=== PATIENT | male | born 1945 | race Caucasian/White ===

== ENCOUNTER → 2016-07-16 | Outpatient (CLI) | payer MEDICARE, MEDICAID ==
--- NOTE | 2016-07-16 16:33 | RAD ---
EXAM DESCRIPTION: Thoracic Spine,AP Lateral CLINICAL HISTORY: RADICULOPATHY COMPARISON: None. TECHNIQUE: 3 views FINDINGS: Prior vertebral body augmentation is observed at T6 and T8. Diffuse osteopenia is observed. No acute compression injury is observed. IMPRESSION: The exam demonstrates evidence of prior vertebral body augmentation. No acute compression injury is detected. Electronically signed by: Jose Alejandro Duke MD 07/16/2016 4:32 PM CDT
--- NOTE | 2016-07-16 16:34 | RAD ---
EXAM DESCRIPTION: Chest,2 Views CLINICAL HISTORY: 71 years Male, COPD IMPRESSION: 2 views of the chest are submitted for interpretation. The lungs are clear. Nipple shadows project bilaterally. They are hyperinflated compatible with emphysema. Mediastinum is unremarkable. No pneumothorax pleural effusion. Multilevel vertebroplasty. Electronically signed by: Ryan Caceres MD 07/16/2016 4:33 PM CDT
--- NOTE | 2016-07-16 17:43 | US ---
Procedure: US RETROPERITONEUM Exam Date: 07/16/2016 Ordering Provider: Naomi Mora Clinical Indication: CYSTIC KIDNEY DISEASE Comparison: None Technique: Real-time ultrasonography was obtained over the kidneys and urinary bladder and customer service representative teacher images were recorded. Findings: The right kidney is normal in size and contour. The right kidney measures 10.0 x 4.6 x 5.1 cm in CC, transverse, and AP dimensions. There is normal renal cortical thickness and echogenicity. There are no masses or calculi. There is mild hydronephrosis. The left kidney is normal in size and contour. The left kidney measures 9.9 x 5.4 x 5.4 cm in CC, transverse, and AP dimensions. There is normal renal cortical thickness and echogenicity. There are no masses or calculi. There is mild hydronephrosis. There is a 1.4 cm cyst with thin septation in the upper pole. Impression: 1. Mild hydronephrosis bilaterally. 2. 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 Electronically signed by: Ethan Al MD 07/16/2016 5:41 PM CDT
== END | disposition home or self-care (01) ==
LOC: LAB.O 12:27
PROVIDERS: ATTEND Nurse Practitioner Family
DX: Q61.9 Cystic kidney disease, unspecified (principal); J44.9 Chronic obstructive pulmonary disease, unspecified; M54.14 Radiculopathy, thoracic region; E53.8 Deficiency of other specified B group vitamins; Z12.5 Encounter for screening for malignant neoplasm of prostate
CPT/HCPCS: 36415; 71020; 72070; 76775; 80053; 81001; 82607; 85025; G0103

== ENCOUNTER 2016-08-16 12:37 | Observation (INO) | payer MEDICARE, MEDICAID ==
[2016-08-16] MEDS ORDERED: LIDOCAINE VIS-MYLANTA 30 ML UD PO ONE (12:53)
--- NOTE | 2016-08-16 13:12 | RAD ---
EXAM DESCRIPTION: Chest,2 Views CLINICAL HISTORY: chest pain 18 hours COMPARISON: July 16, 2016 FINDINGS: Two-view chest x-ray shows cardiomediastinal silhouette and pulmonary vasculature to be within normal limits. The lungs are hyperinflated with chronic appearing increased interstitial markings. Costophrenic angles are sharp. Osseous structures are diffusely osteopenic. Vertebral augmentation of the midthoracic spine is seen with multilevel spondylitic changes noted. IMPRESSION: No radiographic evidence of acute cardiopulmonary disease in this emphysematous chest. Electronically signed by: Gio Cervantes MD 08/16/2016 1:10 PM CDT
[2016-08-16] MEDS ORDERED: NITROGLYCERIN 0.4 MG 25 EA TAB SL PRN ×2 (13:29→20:56)
--- NOTE | 2016-08-16 13:38 | ED.PDOC ---
History of Present Illness - General Chief Complaint: Chest Pain/DE Time Seen by Provider: 08/16/16 12:52 Source: patient Exam Limitations: no limitations - History of Present Illness Initial Comments: the patient is a 71-year-old male presenting to the emergency room secondary to chest pain that is parasternal on both sides starting last night when he was lying in bed. This is currently approximately 18 hours after the time of onset. He reports that the pain has been steady and progressive. He reports some mild shortness of breath with it. No abdominal pain. No belching. No nausea or vomiting. No heartburn issues. No syncope or near syncope. He reports that he has had 3 stress tests in the last 10 years, the last of which was approximately 3 years ago and was negative. he has not had any stents placed. 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 He reports that he apparently had chest pain around that time. No stents were placed. He has not been on any medications for his heart and then a blood pressure medicine. No palpitations. No diaphoresis.the pain is not made worse with exertion or movement. There is no positioning makes the pain better or worse. Palpation of the chest wall does give him some pain but it's difficult to say if it is entirely the same pain.. It does not worsen with taking a deep breath. the patient rates the pain at about a 7 out of 10. both nitroglycerin and a GI cocktail and failed to improve the pain. Timing/Duration: 24 hours Severity: moderate Improving Factors: nothing Worsening Factors: nothing Associated Symptoms: denies symptoms, chest pain Allergies/Adverse Reactions: Allergies NO KNOWN ALLERGY Allergy (Verified 08/16/16 12:53) Home Medications: Ambulatory Orders Cyanocobalamin [Vitamin B12] 1,000 mcg PO DAILY 08/16/16 Review of Systems - Review of Systems Constitutional: States: no symptoms reported EENTM: States: no symptoms reported Respiratory: States: no symptoms reported Cardiology: States: chest pain Gastrointestinal/Abdominal: States: no symptoms reported Genitourinary: States: no symptoms reported Musculoskeletal: States: no symptoms reported Skin: States: no symptoms reported Neurological: States: no symptoms reported Endocrine: States: no symptoms reported All other Systems: No Change from Baseline Past Medical History (General) - Patient Medical History Hx Stroke: No Hx of COPD: Yes Hx Congestive Heart Failure: No Hx Diabetes: No - Vaccination History Hx Influenza Vaccination: No Hx Pneumococcal Vaccination: No - Social History Hx Tobacco Use: Yes Family Medical History - Family History Father Family History: No Known Living Status: Physical Exam - Physical Exam General Appearance: Alert, Comfortable, No apparent distress Eye Exam: bilateral normal Ears, Nose, Throat: hearing grossly normal, normal ENT inspection, normal pharynx - poor dentition Neck: non-tender, full range of motion, supple Respiratory: lungs clear, normal breath sounds, no respiratory distress, no accessory muscle use, other - chest wall discomfort palpation as per history of present illness Cardiovascular/Chest: normal peripheral pulses, regular rate, rhythm, no edema Peripheral Pulses: radial,right: 2+, radial,left: 2+, dorsalis pedis,right: 2+, dorsalis pedis,left: 2+ Gastrointestinal/Abdominal: non tender, soft Rectal Exam: deferred Back Exam: normal inspection, no CVA tenderness, no vertebral tenderness Extremity: normal range of motion, non-tender, normal inspection, no pedal edema , no calf tenderness, normal capillary refill Neurologic: search engineer II-XII nml as tested, alert, normal mood/affect, oriented x 3 Skin Exam: normal color Comments: Vital Signs - 24 hr 08/16/16 12:38 Temperature 98.4 F Pulse Rate 59 L Pulse Rate [ 59 L Apical] Respiratory 22 Rate Blood Pressure 133/77 [Left Arm] O2 Sat by Pulse 96 Oximetry Progress - Progress Progress: 08/16/16 17:14 The patient is a 71-year-old male with a somewhat ill-defined cardiac history. He has had poor follow-up with his primary care doctor and thus poor management of his cardiac risk factors. He is presenting secondary to chest pain starting last night. Initial cardiac enzymes are negative. Initial EKG is reassuring. Chest pain felt to be relieved with nitroglycerin or a GI cocktail. He did receive good relief with just 2 mg of morphine. His chest pain has not recurred. The patient does have a history of hypercholesterolemia and hypertension. Due to these risk factors and his age she will be monitored overnight for a longer rule out protocol. He is receiving aspirin and Lovenox. Obviously if the patient's condition worsens then he will require further cardiac evaluation. At this point in time he is chest pain-free. The patient is unable to get to the emergency room on his own if his chest pain recurs tonight. The patient will be admitted for observation. - Results/Orders Results/Orders: EKG shows a right bundle branch block. Otherwise normal sinus rhythm. No other acute ST segment changes concerning for ischemia. Chest x-ray shows COPD. No acute changes otherwise. Laboratory Tests 08/16/16 08/16/16 08/16/16 13:00 13:00 13:00 WBC 5.1 RBC 4.72 Hgb 14.5 Hct 43.6 MCV 92.3 MCH 30.7 MCHC 33.2 RDW 13.4 Plt Count 135 MPV 9.7 Absolute Neuts (auto) 2.60 Absolute Lymphs (auto) 2.00 Absolute Monos (auto) 0.30 Absolute Eos (auto) 0.20 Absolute Basos (auto) 0.00 Neutrophils % 50.1 Lymphocytes % 38.6 Monocytes % 6.8 Eosinophils % 3.7 Basophils % 0.8 PT INR PTT (SP) D-Dimer, Quantitative Sodium 139 Potassium 3.9 Chloride 107 Carbon Dioxide 25 Anion Gap 10.9 L BUN 18 Creatinine 0.96 BUN/Creatinine Ratio 18.8 Random Glucose 95 Serum Osmolality 279.2 Calcium 8.7 Magnesium 2.0 Total Bilirubin 0.7 AST 15 ALT 12 Alkaline Phosphatase 41 L Creatine Kinase 22 L CK-MB (CK-2) 0.8 CK-MB (CK-2) % Not Reportable Troponin I < 0.02 B-Natriuretic Peptide 48.1 Serum Total Protein 7.0 Albumin 3.8 Globulin 3.2 Albumin/Globulin Ratio 1.2 Amylase 97 08/16/16 08/16/16 13:00 15:55 WBC RBC Hgb Hct MCV MCH MCHC RDW Plt Count MPV Absolute Neuts (auto) Absolute Lymphs (auto) Absolute Monos (auto) Absolute Eos (auto) Absolute Basos (auto) Neutrophils % Lymphocytes % Monocytes % Eosinophils % Basophils % PT 11.5 INR 1.020 PTT (SP) 29.9 D-Dimer, Quantitative 288 H* Sodium Potassium Chloride Carbon Dioxide Anion Gap BUN Creatinine BUN/Creatinine Ratio Random Glucose Serum Osmolality Calcium Magnesium Total Bilirubin AST ALT Alkaline Phosphatase Creatine Kinase 19 L CK-MB (CK-2) 0.7 CK-MB (CK-2) % Not Reportable Troponin I < 0.02 B-Natriuretic Peptide Serum Total Protein Albumin Globulin Albumin/Globulin Ratio Amylase Departure - Departure Clinical Impression: Chest pain Qualifiers: Chest pain type: unspecified Qualified Code(s): R07.9 - Chest pain, unspecified Disposition: Admit Patient Referrals: Naomi Mora FNP [Primary Care Provider] - 1-2 Weeks Home Medications: Ambulatory Orders Cyanocobalamin [Vitamin B12] 1,000 mcg PO DAILY 08/16/16 Decision To Admit - Decistion To Admit Decision to Admit Reason: Medical Nature Decision to Admit Date: 08/16/16 Decision to Admit Time: 17:17
[2016-08-16] MEDS ORDERED: MORPHINE SULFATE INJ 10 MG/ML VIAL IV ONE (14:05)
[2016-08-16] MEDS ORDERED: HYDROCOD/APAP 5/325 (ER DISP) #3 TAB PO ONE (17:11)
[2016-08-16] MEDS ORDERED: ASPIRIN TABLET 325 MG TAB PO ONE (17:11)
[2016-08-16] MEDS ORDERED: ENOXAPARIN SODIUM 60 MG/0.6 ML SYG SUBCU ONE (18:34)
[2016-08-16] MEDS ORDERED: ASPIRIN TABLET 325 MG TAB ONE (18:34)
[2016-08-16] MEDS ORDERED: HYDROcodone 5MG/APAP 325MG 1 EA TAB PO ONE (18:37)
--- NOTE | 2016-08-16 20:40 | HP ---
SUPERVISING PHYSICIAN: Jim Cotton MD CHIEF COMPLAINT: Chest pain. HISTORY OF PRESENT ILLNESS: This is a 71-year-old, male patient who has recently moved to [place] from [place], [place]. He said he had chest pain this morning with some shortness of breath with it. It actually started last night, but he stated it comes and goes, but it got so bad this morning that he came to the Emergency Room. He denies any other symptoms with it. In the Emergency Room, his initial cardiac enzymes were negative. His chest x-ray showed no radiographic evidence of acute cardiopulmonary disease with an emphysematous chest. CBC was basically within normal limits and his complete metabolic panel was basically within normal limits with the exception of his alkaline phosphatase which was slightly low at 41. I was called for admission to the hospital. PAST MEDICAL HISTORY: 1. Chronic obstructive pulmonary disease. PAST SURGICAL HISTORY: 1. Back surgery. CURRENT MEDICATIONS: He is on no outpatient medications. ALLERGIES: NO KNOWN ALLERGIES. SOCIAL HISTORY: He smokes 1-1/2 packs of cigarettes per day. He denies any ETOH or illicit drug use. REVIEW OF SYSTEMS: GENERAL: Denies fever, fatigue or weight changes. HEENT: Denies sinus symptoms, ear pain, vision changes or sore throat. RESPIRATORY: Complains of shortness of breath with the chest pain. Denies wheezing, coughing. CARDIAC: As per history of present illness. GASTROINTESTINAL: Denies nausea, vomiting, diarrhea, constipation or abdominal pain. SKIN: Denies lesions or rashes. NEUROLOGIC: Denies headache, dizziness, or seizures. PHYSICAL EXAMINATION: VITAL SIGNS: Afebrile. Heart rate 52 and has dropped as low as 45. Blood pressure 120/74. Respiratory rate 22. O2 saturation 92% on room air. GENERAL: This is a 71-year-old, male patient who is lying in his hospital bed. He is in no acute distress. HEENT: Normocephalic, atraumatic. Pupils are equal and reactive. Oropharynx is clear. NECK: Supple without mass. RESPIRATORY: Essentially clear to auscultation. CHEST: There is equal rise and fall of the chest with inspiration and expiration. CARDIAC: Bradycardic rate and regular rhythm. ABDOMEN: Nondistended, nontender. Bowel sounds are positive. EXTREMITIES: No cyanosis, clubbing or edema. NEUROLOGIC: Awake, alert and oriented times three. LABORATORY AND FILMS: Per history of present illness. ASSESSMENT: 1. Chest pain, rule out myocardial infarction. 2. Chronic obstructive pulmonary disease.. 3. Chronic tobacco abuse. PLAN: We will place the patient in observation. Continue cardiac enzymes. If they are negative and he has no further chest pain, he can be discharged tomorrow. He has seen Naomi Mora in the past at [facility] and he will need a close followup. The patient's heart rate does drop into the 40s, but he is asymptomatic with it and he states his normal heart rate is around 50 to 55 and he has never had any syncopal or dizzy spells with it, but it is recommended that he get a cardiac workup. I will order bronchial hygiene. We will monitor the patient closely and followup as needed. Dr. Cotton is the collaborating physician and available for consultation. #[id number] FITZ
[2016-08-16] MEDS: SODIUM CHLORIDE 0.9% (FLUSH) 10 ML SYG IV SCH (20:50)
[2016-08-16] MEDS ORDERED: SODIUM CHLORIDE 0.9% (FLUSH) 10 ML SYG IV PRN (20:56)
[2016-08-16] MEDS ORDERED: ACETAMINOPHEN 325 MG TAB PO PRN (20:56)
[2016-08-16] MEDS ORDERED: MORPHINE SULFATE INJ 10 MG/ML VIAL IV PRN (20:56)
[2016-08-16] MEDS ORDERED: IV SET AND CAP CHANGE INJ INJ SCH (21:00)
[2016-08-16 21:17] VITALS: BP 103/63; TEMP 98.1
[2016-08-17] MEDS ORDERED: PANTOPRAZOLE SODIUM TAB 40 MG PO SCH (06:30)
[2016-08-17] MEDS ORDERED: ASPIRIN TABLET 325 MG TAB PO SCH (09:00)
[2016-08-17] MEDS: SODIUM CHLORIDE 0.9% (FLUSH) 10 ML SYG IV SCH (09:16)
[2016-08-17 11:01] VITALS: O2SAT 94
--- NOTE | 2016-08-22 14:22 | DS ---
SUPERVISING PHYSICIAN: Jim Cotton MD DISCHARGE DIAGNOSIS: 1. Chest pain on admission, myocardial infarction ruled out due to negative cardiac enzymes and no EKG changes as well as clinically, the patient had no further chest pain during hospital stay. 2. Asymptomatic bradycardia. 3. Chronic obstructive pulmonary disease.. 4. Chronic tobacco abuse. HISTORY OF PRESENT ILLNESS: This is a 71-year-old, male patient who had recently moved to [place] from [place], [place]. He had chest pain earlier on the morning of admission with some associated shortness of breath. This had been going on previously, but the patient stated it would come and go, but it got so bad on the morning prior to coming to the Emergency Room that he felt it was necessary he be checked out. There were no other symptoms with it. In the Emergency Room, his initial cardiac enzymes were negative. His chest x-ray per radiology interpretation showed no radiographic evidence of acute cardiopulmonary disease with an emphysematous chest. CBC was basically within normal limits as well as his metabolic panel. The patient was placed in observation in the hospital. HOSPITAL COURSE: His subsequent cardiac enzymes were negative. He has no further complaints of chest pain. He walked the halls without any shortness of breath. He showed no EKG changes on the cardiac cath lab radiology technologist. The patient will be discharged home today. DISCHARGE PLAN: The patient will be discharged home in stable condition. He is to resume his previous activity. He is to resume his previous diet. He has seen Naomi Mora at [facility] on one occasion previously, but he will need a close followup. The patient does become quite bradycardic at times with his heart rate in the 40s, but he is asymptomatic with that rate and he states he has had the low heart rate for many years. He will need a cardiac workup at some point. I have encouraged him to stop smoking. He is to return to [facility] or the Emergency Room if he has any further chest pains. DISCHARGE MEDICATIONS: 1. Cyanocobalamin. 2. Nitroglycerin. #[id number] [facility]
== END 2016-08-17 11:45 | disposition home or self-care (01) ==
LOC: ER 12:37 → MS 20:39
PROVIDERS: ADMIT Nurse Practitioner Acute Care; ATTEND Nurse Practitioner Acute Care
DX: R07.89 Other chest pain (principal); J44.9 Chronic obstructive pulmonary disease, unspecified; F17.210 Nicotine dependence, cigarettes, uncomplicated; R06.02 Shortness of breath; E78.00 Pure hypercholesterolemia, unspecified; I10 Essential (primary) hypertension; I45.10 Unspecified right bundle-branch block
CPT/HCPCS: 36415 ×5; 71020; 80053 ×2; 80061; 82150; 82550 ×4; 82553 ×4; 83735; 83880; 84484 ×4; 85025 ×2; 85379; 85610; 85730; 93005 ×3; 94760 ×4; 96372; 96374; 99284; 99406; G0378; J1650; J2270

== ENCOUNTER 2016-09-11 11:19 | Emergency (ER) | payer MEDICARE, MEDICAID ==
[2016-09-11 11:33] VITALS: TEMP 98.2
--- NOTE | 2016-09-11 11:34 | ED.PDOC ---
History of Present Illness - General Chief Complaint: Chest Pain/[place] Stated Complaint: chest pressure Time Seen by Provider: 09/11/16 11:34 Source: patient, RN notes reviewed, Vital Signs reviewed Exam Limitations: no limitations - History of Present Illness Initial Comments: Denzel Bedolla 71 y/o male with history of copd stated that at home and resting 3 hours ago felt something heavy on his chest with sob no diaphoresis,no dizziness ,no nausea vomiting. He had chest pain symptoms 6 years ago while living in [place] and underwent cardiac cath was told had partial blockage in one of his coronaries but does not need intervention at that time.Continue to smoke 2ppd for 50 years but cut down to 1ppd the last 3 weeks. Timing/Duration: 1-3 hours, constant Location: central Activities at Onset: rest Prior Chest Pain/Cardiac Workup: cardiac cath - 6 years ago-see hpi Improving Factors: nothing Worsening Factors: nothing Nitro Today/Relief: 0.4 mg x 1, provided by ED Aspirin Treatment Today: 325 mg x 1, provided by ED Associated Symptoms: shortness of breath Allergies/Adverse Reactions: Allergies NO KNOWN ALLERGY Allergy (Verified 08/16/16 12:53) Home Medications: Ambulatory Orders NK [NK] 09/11/16 Review of Systems - Review of Systems Constitutional: States: no symptoms reported EENTM: States: no symptoms reported Respiratory: States: no symptoms reported Cardiology: States: see HPI Gastrointestinal/Abdominal: States: no symptoms reported Genitourinary: States: no symptoms reported Musculoskeletal: States: no symptoms reported Skin: States: no symptoms reported Neurological: States: no symptoms reported Endocrine: States: no symptoms reported Hematologic/Lymphatic: States: no symptoms reported Past Medical History (General) - Patient Medical History Hx Seizures: No Hx Stroke: No Hx Asthma: No Hx of COPD: Yes Hx Congestive Heart Failure: No Hx Pacemaker: No Hx Hypertension: Yes Hx Diabetes: No Hx MRSA: No Surgical History: other - lumbar spine,colonoscopy,cardiac cath - Vaccination History Hx Influenza Vaccination: No Hx Pneumococcal Vaccination: No - Social History Hx Tobacco Use: Yes Hx Alcohol Use: No Hx Substance Use: No Hx Physical Abuse: No Hx Emotional Abuse: No - Activities of Daily Living Patient Lives Alone: Yes Grooming Ability: Independent Eating (Feeding) Ability: Independent Toileting Ability: Independent Family Medical History - Family History Father Family History: No Known Living Status: Hx Cardiac Disease: Yes - parents -WV Physical Exam - Physical Exam General Appearance: Alert, No apparent distress Eyes, Ears, Nose, Throat Exam: PERRL/EOMI, normal ENT inspection, TMs normal, pharynx normal Neck: non-tender, full range of motion, supple Respiratory: chest non-tender, lungs clear, decreased breath sounds Cardiovascular/Chest: normal peripheral pulses, regular rate, rhythm, no edema, no murmur Peripheral Pulses: radial,right: 2+, radial,left: 2+ Gastrointestinal/Abdominal: normal bowel sounds, non tender, soft Extremity: normal range of motion, non-tender, normal inspection, no calf tenderness Neurologic: no motor/sensory deficits, alert, normal mood/affect, oriented x 3 Skin Exam: normal color, warm/dry Lymphatic: no adenopathy Progress - Results/Orders Results/Orders: Vital Signs - 8 hr 09/11/16 09/11/16 09/11/16 11:31 11:39 12:33 Temperature 98.2 F Pulse Rate [ 63 63 70 Right Brachial] Respiratory 16 16 Rate Blood Pressure 129/103 104/63 [Right Arm] O2 Sat by Pulse 96 95 Oximetry 09/11/16 11:45 EKG STAT Laboratory Results WBC 5.3 K/mm3 (4.8-10.8) 09/11/16 11:28 RBC 4.84 M/mm3 (4.70-6.10) 09/11/16 11:28 Hgb 15.0 gm/dL (14.0-18.0) 09/11/16 11:28 Hct 44.5 % (42.0-52.0) 09/11/16 11:28 MCV 92.0 fl (80.0-94.0) 09/11/16 11:28 MCH 31.1 pg (27.0-31.0) H 09/11/16 11:28 MCHC 33.8 g/dL (33.0-37.0) 09/11/16 11:28 RDW 13.8 % (11.5-14.5) 09/11/16 11:28 Plt Count 159 K/mm3 (130-400) 09/11/16 11:28 MPV 9.7 fl (7.40-10.4) 09/11/16 11:28 Absolute Neuts (auto) 2.70 K/uL (1.8-6.8) 09/11/16 11:28 Absolute Lymphs (auto) 2.00 K/uL (1.0-3.4) 09/11/16 11:28 Absolute Monos (auto) 0.40 K/uL (0.2-0.8) 09/11/16 11:28 Absolute Eos (auto) 0.20 K/uL (0.0-0.4) 09/11/16 11:28 Absolute Basos (auto) 0.00 K/uL (0.0-0.1) 09/11/16 11:28 Neutrophils % 50.5 % (42.0-78.0) 09/11/16 11:28 Lymphocytes % 38.7 % (20.0-50.0) 09/11/16 11:28 Monocytes % 7.1 % (2.0-9.0) 09/11/16 11:28 Eosinophils % 3.1 % (1.0-5.0) 09/11/16 11:28 Basophils % 0.6 % (0.0-2.0) 09/11/16 11:28 PT 11.4 SECONDS (9.4-12.5) 09/11/16 11:28 INR 1.010 09/11/16 11:28 PTT (SP) 32.9 SECONDS (25.1-36.5) 09/11/16 11:28 D-Dimer, Quantitative < 200 ng/mL (0-230) 09/11/16 11:28 Sodium 136 mmol/L (135-145) 09/11/16 11:28 Potassium 4.0 mmol/L (3.6-5.0) 09/11/16 11:28 Chloride 104 mmol/L (101-111) 09/11/16 11:28 Carbon Dioxide 29 mmol/L (21-31) 09/11/16 11:28 Anion Gap 7.0 (12-18) L 09/11/16 11:28 BUN 14 mg/dL (7-18) 09/11/16 11:28 Creatinine 0.96 mg/dL (0.6-1.3) 09/11/16 11:28 BUN/Creatinine Ratio 14.6 (10-20) 09/11/16 11:28 Random Glucose 99 mg/dL (70-105) 09/11/16 11:28 Serum Osmolality 272.5 mOsm/L (275-295) L 09/11/16 11:28 Calcium 8.8 mg/dL (8.4-10.2) 09/11/16 11:28 Magnesium 2.0 mg/dL (1.8-2.5) 09/11/16 11:28 Total Bilirubin 0.6 mg/dL (0.2-1.0) 09/11/16 11:28 Direct Bilirubin 0.1 mg/dL (0-0.2) 09/11/16 11:28 Indirect Bilirubin 0.5 mg/dL (0.2-0.8) 09/11/16 11:28 AST 16 IU/L (10-42) 09/11/16 11:28 ALT 12 IU/L (10-60) 09/11/16 11:28 Alkaline Phosphatase 44 IU/L (42-121) 09/11/16 11:28 Creatine Kinase 23 IU/L (38-174) L 09/11/16 11:28 CK-MB (CK-2) 1.0 ng/mL (0.0-4.4) 09/11/16 11:28 CK-MB (CK-2) % Not Reportable 09/11/16 11:28 Troponin I < 0.02 ng/mL (0.01-0.05) 09/11/16 11:28 B-Natriuretic Peptide 53.5 pg/ml (0-100) 09/11/16 11:28 Serum Total Protein 7.2 gm/dL (6.4-8.2) 09/11/16 11:28 Albumin 3.8 g/dl (3.2-5.5) 09/11/16 11:28 Discuss smoking cessation with patient stating he used to smoke 2ppd cut down to one ppd he will gradually quit saying cutting down slowly;recommended nicotine patch/gum but prefers to do it on his own. - EKG/XRAY/CT EKG: RBBB, no ST T wave changes Comments: heart rate-59,bifascicular block XRAY: chest - copd changes,osteopenia spine - Additional EKG/XRAY/Consults EKG #2: RBBB, no ST T wave changes Comments: heart rate-61 Departure - Departure Clinical Impression: Chest tightness or pressure COPD (chronic obstructive pulmonary disease) Qualifiers: COPD type: emphysema Emphysema type: unspecified Qualified Code(s): J43.9 - Emphysema, unspecified Nicotine dependence Qualifiers: Nicotine product type: cigarettes Substance use status: uncomplicated Qualified Code(s): F17.210 - Nicotine dependence, cigarettes, uncomplicated Time of Disposition: 15:19 - D/W Dr. Denise gr md [facility] Disposition: Transfer to Hospital Condition: Fair Departure Forms: Patient Portal Self Enrollment Referrals: Naomi Mora FNP [Primary Care Provider] - 1-2 Weeks Home Medications: Ambulatory Orders NK [NK] 09/11/16
[2016-09-11] MEDS ORDERED: ASPIRIN (CHEWABLE) 81 MG TAB PO ONE (11:38)
[2016-09-11] MEDS: NITROGLYCERIN 0.4 MG 25 EA TAB SL ONE ×3 (11:41→14:49)
--- NOTE | 2016-09-11 12:01 | RAD ---
Study: Single Frontal View of the Chest. Indication:pain Comparison: August 16, 2016. Impression: Heart size normal. Emphysema noted. Nipple shadow suspected at the lung bases. Otherwise, lungs clear. Prior two level thoracic vertebral body augmentation noted. Osteopenia. If this is a new finding, DEXA scan recommended as well as evaluation for possible osteoporosis treatment. Electronically signed by: Walt Mckenna MD 09/11/2016 12:01 PM CDT
[2016-09-11 15:28] VITALS: BP 114/68; O2SAT 95
== END 2016-09-11 15:28 | disposition short-term general hospital (02) ==
LOC: ER 11:19
DX: J43.9 Emphysema, unspecified (principal); R07.89 Other chest pain; F17.210 Nicotine dependence, cigarettes, uncomplicated; I10 Essential (primary) hypertension; Z82.49 Family history of ischemic heart disease and other diseases of the circulatory system; I45.10 Unspecified right bundle-branch block

== ENCOUNTER → 2016-09-21 | Outpatient (CLI) | payer MEDICARE, MEDICAID | END | disposition home or self-care (01) | LOC: LAB.O 09:50 | PROVIDERS: ATTEND Nurse Practitioner Family | DX: I20.9 Angina pectoris, unspecified (principal); R00.1 Bradycardia, unspecified; J44.9 Chronic obstructive pulmonary disease, unspecified; F17.290 Nicotine dependence, other tobacco product, uncomplicated ==

== ENCOUNTER 2016-12-05 20:19 | Emergency (ER) | payer MEDICARE, MEDICAID ==
[2016-12-05] MEDS ORDERED: IPRATROPIUM/ALBUTEROL 3 ML VIAL NEB ONE ×2 (20:32→21:43)
[2016-12-05 20:37] VITALS: TEMP 97.8
--- NOTE | 2016-12-05 20:39 | ED.PDOC ---
History of Present Illness - General Chief Complaint: Respiratory Problem Stated Complaint: shortness of breath Time Seen by Provider: 12/05/16 20:22 Source: patient Exam Limitations: no limitations - History of Present Illness Initial Comments: Patient presents with dyspnea for two hours. He has COPD and still smokes cigarettes. He has not had a COPD exacerbation in "a long time". He has not had a significant cough. No chest pain. No fever. No other complaints. Timing/Duration: 1-3 hours Severity: mild Improving Factors: nothing Worsening Factors: nothing Associated Symptoms: denies symptoms Allergies/Adverse Reactions: Allergies NO KNOWN ALLERGY Allergy (Verified 08/16/16 12:53) Home Medications: Ambulatory Orders NK [NK] 09/11/16 Review of Systems - Review of Systems Constitutional: States: no symptoms reported EENTM: States: no symptoms reported Respiratory: States: see HPI Cardiology: States: no symptoms reported Gastrointestinal/Abdominal: States: no symptoms reported Genitourinary: States: no symptoms reported Musculoskeletal: States: no symptoms reported Skin: States: no symptoms reported Neurological: States: no symptoms reported Endocrine: States: no symptoms reported Hematologic/Lymphatic: States: no symptoms reported Past Medical History (General) - Patient Medical History Hx Seizures: No Hx Stroke: No Hx Asthma: No Hx of COPD: Yes Hx Congestive Heart Failure: No Hx Pacemaker: No Hx Hypertension: Yes Hx Diabetes: No Hx MRSA: No - Vaccination History Hx Influenza Vaccination: No Hx Pneumococcal Vaccination: No - Social History Hx Tobacco Use: Yes Hx Alcohol Use: No Hx Substance Use: No Hx Physical Abuse: No Hx Emotional Abuse: No Family Medical History - Family History Father Family History: No Known Living Status: Hx Cardiac Disease: Yes - parents -[place] Physical Exam - Physical Exam General Appearance: Alert Ears, Nose, Throat: normal ENT inspection Neck: non-tender, full range of motion, supple Respiratory: other - distant breath sounds in all lung laguerre Cardiovascular/Chest: normal peripheral pulses, regular rate, rhythm Gastrointestinal/Abdominal: normal bowel sounds, non tender, soft Skin Exam: normal color Lymphatic: no adenopathy Progress - Progress Progress: 12/05/16 23:06 Patient responded well to a duonebs x one. He was also given solumedrol 125 mg IM x one. He said that his symptoms had cleared up. He was discharged in good condition. Departure - Departure Clinical Impression: COPD exacerbation Disposition: Discharge to Home or Self Care Condition: Good Diet: resume usual diet Activity: increase activity as tolerated Referrals: Naomi Mora FNP [Primary Care Provider] - 1-2 Weeks Home Medications: Ambulatory Orders NK [NK] 09/11/16
--- NOTE | 2016-12-05 20:57 | RAD ---
PROCEDURE: XR CHEST 1 VIEW HISTORY: dyspnea COMPARISON: 09/11/2016 TECHNIQUE: Single projection of the chest was done. FINDINGS: Note is again made of underlying changes of COPD . There are no discrete airspace infiltrates, pneumothoraces or pleural effusions. The pulmonary vascularity is normal. The cardiomediastinal silhouette is unremarkable for patient's age and sex. IMPRESSION: There is no acute pleural-parenchymal process seen in the imaged lung laguerre. Location of Interpretation: [facility] Electronically signed by: Benoit Rutledge MD 12/05/2016 8:56 PM CDT Workstation: [id number]
[2016-12-05] MEDS ORDERED: methylPREDNISolone SODIUM SUC 125 MG/2 ML VIAL IV ONE (21:17)
[2016-12-05 22:33] VITALS: O2SAT 94
[2016-12-05 23:14] VITALS: BP 119/76
== END 2016-12-05 23:13 | disposition home or self-care (01) ==
LOC: ER 20:19
DX: J44.1 Chronic obstructive pulmonary disease with (acute) exacerbation (principal); F17.210 Nicotine dependence, cigarettes, uncomplicated; I10 Essential (primary) hypertension; Z82.49 Family history of ischemic heart disease and other diseases of the circulatory system
CPT/HCPCS: 36415; 71010; 80053; 82550; 82553; 83880; 84484; 85025; 85610; 85730; 93005; 94640; J2930; J7620

== ENCOUNTER → 2016-12-13 | Outpatient (CLI) | payer MEDICARE, MEDICAID | LOC: RESP 13:26 | PROVIDERS: ATTEND Nuclear Medicine Nuclear Cardiology | DX: R00.2 Palpitations (principal) ==

== ENCOUNTER 2017-01-05 16:42 | Emergency (ER) | payer MEDICARE, MEDICAID ==
--- NOTE | 2017-01-05 17:00 | ED.PDOC ---
History of Present Illness - General Chief Complaint: Chest Pain/TN Stated Complaint: Chest pain Time Seen by Provider: 01/05/17 16:48 Source: patient, RN notes reviewed, Vital Signs reviewed, old records Exam Limitations: no limitations - History of Present Illness Initial Comments: Patient comes in with c/o chest pain across his upper chest for the past hour. The pain is sharp & 8/10. + SOB and diaphoresis. No nausea. 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 He also reports he popped a rib earlier and has pain in his L lower ribs with deep breathing. Pain does not radiate. Timing/Duration: 1 hour Severity/Quality: moderate, sharp Location: central Chest Pain Radiation: no radiation Activities at Onset: other - working on his backhoe Prior Chest Pain/Cardiac Workup: angina, cardiac cath - 6 years ago, stress test - ~5 months ago - normal per patient. Improving Factors: nothing Worsening Factors: nothing Nitro Today/Relief: 0.4 mg x 2, provided by ED, mild relief Aspirin Treatment Today: 325 mg x 1, provided at home Associated Symptoms: diaphoresis, shortness of breath Allergies/Adverse Reactions: Allergies NO KNOWN ALLERGY Allergy (Verified 01/05/17 16:53) Home Medications: Ambulatory Orders Aspirin [(None)] 325 mg PO DAILY 01/05/17 Cyanocobalamin [Vitamin B-12] 1,000 mcg PO DAILY 01/05/17 Review of Systems - Review of Systems Constitutional: States: diaphoresis. Denies: chills, fever, malaise EENTM: States: no symptoms reported Respiratory: States: short of breath, other - Hx of COPD, smoker X 50 years - has cut down to 1/2ppd. Denies: cough Cardiology: States: chest pain. Denies: palpitations, syncope Gastrointestinal/Abdominal: Denies: nausea Musculoskeletal: States: no symptoms reported Skin: States: no symptoms reported Neurological: States: no symptoms reported All other Systems: No Change from Baseline Past Medical History (General) - Patient Medical History Hx Seizures: No Hx Stroke: No Hx Asthma: No Hx of COPD: Yes Hx Congestive Heart Failure: No Hx Pacemaker: No Hx Hypertension: Yes Hx Diabetes: No Hx MRSA: No - Vaccination History Hx Influenza Vaccination: No Hx Pneumococcal Vaccination: No - Social History Hx Tobacco Use: Yes Hx Alcohol Use: No Hx Substance Use: No Hx Substance Use Treatment: No Hx Physical Abuse: No Hx Emotional Abuse: No Family Medical History - Family History Father Family History: No Known Living Status: Hx Cardiac Disease: Yes - parents -[place] Physical Exam - Physical Exam General Appearance: Alert, Comfortable, No apparent distress, Well Developed, Well Groomed, Well Hydrated, Well Nourished Neck: supple, normal inspection Respiratory: lungs clear, normal breath sounds, no respiratory distress, no accessory muscle use, other - mild tenderness across upper chest and tender L lower ribs Cardiovascular/Chest: normal peripheral pulses, regular rate, rhythm, no edema, no gallop, no JVD, no murmur Peripheral Pulses: radial,right: 2+, radial,left: 2+, dorsalis pedis,right: 1+, dorsalis pedis,left: 1+ Gastrointestinal/Abdominal: normal bowel sounds, non tender, soft, no organomegaly, no pulsatile mass Extremity: normal inspection, no pedal edema Neurologic: alert, normal mood/affect, oriented x 3 Skin Exam: normal color, warm/dry Comments: Vital Signs 01/05/17 16:54 Temperature 100.3 F H Pulse Rate [ 84 Apical] Respiratory 20 Rate Blood Pressure 129/57 [Left Arm] O2 Sat by Pulse 91 L Oximetry Progress - Progress Progress: 01/05/17 17:26 Chest pain decreased from 8/10 to 5/10 after 2 SLNTG but BP dropped into upper 70's - will give NS bolus and hold off on further NTG 01/05/17 17:59 BP improved after NS bolus Initial cardiac enzymes are normal. Will await 2nd set 4 hours after initial set. 01/05/17 19:03 Patient reports he is feeling better. Chest pain is 1/10. - Results/Orders Results/Orders: Laboratory Tests 01/05/17 01/05/17 01/05/17 17:05 17:05 17:05 WBC 8.8 RBC 4.42 L Hgb 13.7 L Hct 41.1 L MCV 93.1 MCH 30.9 MCHC 33.4 RDW 14.1 Plt Count 164 MPV 9.9 Absolute Neuts (auto) 6.60 Absolute Lymphs (auto) 1.50 Absolute Monos (auto) 0.60 Absolute Eos (auto) 0.10 Absolute Basos (auto) 0.00 Neutrophils % 74.8 Lymphocytes % 16.6 L Monocytes % 7.0 Eosinophils % 1.0 Basophils % 0.6 D-Dimer, Quantitative < 230 Sodium 134 L Potassium 3.4 L Chloride 102 Carbon Dioxide 23 Anion Gap 12.4 BUN 18 Creatinine 0.84 BUN/Creatinine Ratio 21.4 H Random Glucose 114 H Serum Osmolality 271.0 L Calcium 9.2 Total Bilirubin 0.8 AST 19 ALT 12 Alkaline Phosphatase 52 Creatine Kinase 16 L CK-MB (CK-2) 1.6 CK-MB (CK-2) % Not Reportable Troponin I < 0.02 Serum Total Protein 7.9 Albumin 3.9 Globulin 4.0 H Albumin/Globulin Ratio 1.0 L 01/05/17 20:07 WBC RBC Hgb Hct MCV MCH MCHC RDW Plt Count MPV Absolute Neuts (auto) Absolute Lymphs (auto) Absolute Monos (auto) Absolute Eos (auto) Absolute Basos (auto) Neutrophils % Lymphocytes % Monocytes % Eosinophils % Basophils % D-Dimer, Quantitative Sodium Potassium Chloride Carbon Dioxide Anion Gap BUN Creatinine BUN/Creatinine Ratio Random Glucose Serum Osmolality Calcium Total Bilirubin AST ALT Alkaline Phosphatase Creatine Kinase 20 L CK-MB (CK-2) 0.4 CK-MB (CK-2) % Not Reportable Troponin I < 0.02 Serum Total Protein Albumin Globulin Albumin/Globulin Ratio - EKG/XRAY/CT EKG: Sinus, RBBB, nonspecific ST T wave Chg, Unchanged from - 12/05/16 XRAY: chest - No acute process per Radiologist Departure - Departure Clinical Impression: Chest pain Qualifiers: Chest pain type: unspecified Qualified Code(s): R07.9 - Chest pain, unspecified Time of Disposition: 20:30 Disposition: Discharge to Home or Self Care Condition: Good Departure Forms: ED Discharge - Pt. Copy, Patient Portal Self Enrollment Instructions: DI for Chest Pain Diet: resume usual diet Activity: increase activity as tolerated Referrals: Naomi Mora NP [Primary Care Provider] - 1-2 Weeks RENÉ SAXENA [Referring] - 1-2 Weeks Home Medications: Ambulatory Orders Aspirin [(None)] 325 mg PO DAILY 01/05/17 Cyanocobalamin [Vitamin B-12] 1,000 mcg PO DAILY 01/05/17
[2017-01-05] MEDS: NITROGLYCERIN 0.4 MG 25 EA TAB SL ONE ×2 (17:09→17:15)
--- NOTE | 2017-01-05 17:16 | RAD ---
EXAM DESCRIPTION: Chest,1 View CLINICAL HISTORY: chest pain COMPARISON: December 05, 2016 FINDINGS: Cardiac silhouette is within normal limits. Skin folds project over the upper chest bilaterally. Patient is status post vertebroplasties. There is no focal parenchymal or pleural disease. There is no acute osseous process visualized. IMPRESSION: No evidence of acute cardiopulmonary disease. Electronically signed by: Jose Enrique Leonard MD 01/05/2017 5:15 PM CDT
[2017-01-05] MEDS ORDERED: SODIUM CHLORIDE 0.9% 1000ML 1,000 ML IVS ONE (17:26)
[2017-01-05 20:24] VITALS: O2SAT 96
[2017-01-05 20:38] VITALS: BP 139/80; TEMP 99.1
[2017-01-06] MEDS ORDERED: SODIUM CHLORIDE 0.9% 1000ML 1,000 ML ONE (09:21)
== END 2017-01-05 20:38 | disposition home or self-care (01) ==
LOC: ER 16:42
DX: R07.9 Chest pain, unspecified (principal); I45.10 Unspecified right bundle-branch block; J44.9 Chronic obstructive pulmonary disease, unspecified; I10 Essential (primary) hypertension; F17.200 Nicotine dependence, unspecified, uncomplicated

== ENCOUNTER → 2017-02-04 | Outpatient (CLI) | payer MEDICARE, MEDICAID | END | disposition home or self-care (01) | LOC: YCFC.O 10:32 | PROVIDERS: ATTEND Nurse Practitioner Family | DX: Q61.9 Cystic kidney disease, unspecified (principal) ==

== ENCOUNTER → 2017-02-05 | Outpatient (CLI) | payer MEDICARE, MEDICAID ==
--- NOTE | 2017-02-05 16:25 | US ---
EXAM DESCRIPTION: Renal: Ultrasound. CLINICAL HISTORY: CYSTIC KIDNEY DISEASE COMPARISON: Renal ultrasound 07/16/2016. TECHNIQUE: Transcutaneous scanning: Two-dimensional and Doppler modes. FINDINGS: Right kidney measures 10.3 x 5.7 x 4.4 cm; mid-renal cortical thickness normal . Minimally prominent renal pyramids consistent with age. No hydronephrosis No calcifications. Smooth contour of the kidney with no perinephric fluid. Normal vascularity. Proximal ureter not visualized. Left kidney measures number cm; mid-renal cortical thickness normal. Left renal cyst measures 1.2 x 1.2 x 1.9 cm. Nonvascular. No septation seen. Minimally prominent renal pyramids consistent with age. Mild hydronephrosis. No calcifications. Smooth contour of the kidney with no perinephric fluid. Normal vascularity.. Proximal ureter was visualized. Urinary bladder not visualized. Abdominal aorta diameter not measured IMPRESSION: Age-related changes in the right kidney. Stable since the prior study. Mild hydronephrosis in the left kidney stable since the prior study. No septations seen in the left renal cyst with a more simple appearance. No follow-up imaging recommended at this time. Electronically signed by: Enrrique Steiner MD 02/05/2017 4:24 PM CDT
== END | disposition home or self-care (01) ==
LOC: US 08:10
PROVIDERS: ATTEND Nurse Practitioner Family
DX: Q61.9 Cystic kidney disease, unspecified (principal)

== ENCOUNTER → 2017-02-13 | Outpatient (CLI) | payer MEDICARE, MEDICAID ==
--- NOTE | 2017-02-14 09:57 | CT ---
EXAM DESCRIPTION: Abdoment/Pelvis w/o Contrast CLINICAL HISTORY: RENAL MASS COMPARISON: Ultrasound February 05, 2017 TECHNIQUE: CT of the abdomen and Pelvis was performed without IV contrast. This exam was performed according to our departmental dose-optimization program, which includes automated exposure control, adjustment of the mA and/or kV according to patient size and/or use of iterative reconstruction technique. FINDINGS: Limited sensitivity for detection of a renal or other solid organ mass due to lack of IV contrast. With this in mind, there is an 8 mm hyperdense lesion superior pole right kidney, nonspecific. This was not seen on the patient's previous ultrasound. No additional right renal mass is seen. The right renal contour is smooth. Minimal prominence of the right renal collecting system without right-sided ureteral dilation or apparent right-sided urinary tract calculus. There is a round 1.7 cm low density mid left renal lesion which correlates with the cyst seen on recent ultrasound. No additional left renal mass is identified, and the left renal contour is smooth. There is mild left-sided hydronephrosis without left ureteral dilation or left-sided urinary tract calculus. No bladder calculus or bladder wall thickening. The prostate is slightly enlarged, measuring 5.2 cm transverse diameter. Moderate amount colonic stool and gas without colonic wall thickening or pericolonic inflammation. No dilated small bowel loops. The gallbladder is present without calcified gallstone. The liver, spleen, pancreas and marked. Emphysematous changes are noted in the lung bases. No adenopathy, ascites or pneumoperitoneum. No concerning bone lesion. IMPRESSION: 1.7 cm cystic lesion in the left kidney, suboptimally evaluated due to lack of IV contrast. This correlates with findings from recent ultrasound. No apparent solid left or right-sided renal mass. If clinical suspicion of renal mass persists, renal protocol CT with pre and multiphase postcontrast images is suggested. Mild bilateral hydronephrosis, slightly worse in the left side. No urinary tract calculus or ureteral dilation. Slightly enlarged prostate, correlate with serum PSA evaluation. Emphysema and other nonacute findings as detailed above. Electronically signed by: Tarun Bhakta MD 02/14/2017 9:56 AM CDT
== END | disposition home or self-care (01) ==
LOC: CT 10:53
PROVIDERS: ATTEND Internal Medicine Nephrology
DX: N18.4 Chronic kidney disease, stage 4 (severe) (principal)

== ENCOUNTER 2017-03-22 19:36 | Emergency (ER) | payer MEDICARE, MEDICAID ==
--- NOTE | 2017-03-22 20:45 | ED.PDOC ---
History of Present Illness - General Chief Complaint: General Stated Complaint: constipated Time Seen by Provider: 03/22/17 20:43 Source: patient Exam Limitations: no limitations - History of Present Illness Initial Comments: Denzel Bedolla 71 y/o male stated he had no bowel movement for the last 6 days and feeling more abdominal fullness;not takaing opiods;denies gi problems in the past Had colonoscopy 7 years ago was advised to come back in 10 years.No nausea or vomiting;no hematemesis Timing/Duration: other - see hpi Severity: moderate Improving Factors: nothing Worsening Factors: nothing Associated Symptoms: other - see hpi Allergies/Adverse Reactions: Allergies NO KNOWN ALLERGY Allergy (Verified 03/22/17 20:00) Home Medications: Ambulatory Orders Aspirin [(None)] 325 mg PO DAILY 01/05/17 Cyanocobalamin [Vitamin B-12] 1,000 mcg PO DAILY 01/05/17 Review of Systems - Review of Systems Constitutional: States: no symptoms reported EENTM: States: no symptoms reported Respiratory: States: no symptoms reported Cardiology: States: no symptoms reported Gastrointestinal/Abdominal: States: see HPI Genitourinary: States: no symptoms reported Past Medical History (General) - Patient Medical History Hx Seizures: No Hx Stroke: No Hx Dementia: No Hx Asthma: No Hx of COPD: Yes Hx Cardiac Disorders: Yes Hx Congestive Heart Failure: No Hx Pacemaker: No Hx Hypertension: No Hx Thyroid Disease: No Hx Diabetes: No Hx Gastroesophageal Reflux: No Hx Renal Disease: No Hx Cancer: No Hx of HIV: No Hx Hepatitis C: No Hx MRSA: No Surgical History: other - low back surgery;colonoscopy cardiac cath - Vaccination History Hx Tetanus, Diphtheria Vaccination: Yes Hx Influenza Vaccination: No Hx Pneumococcal Vaccination: No - Social History Hx Tobacco Use: Yes Hx Alcohol Use: No Hx Substance Use: No Hx Substance Use Treatment: No Hx Depression: No Hx Physical Abuse: No Hx Emotional Abuse: No - Triage Comment ED Triage Comment: Presents to ED--c/o constipation x 1 week now with no relief from OTC Ex-Lac states. Family Medical History - Family History Father Family History: No Known Living Status: Hx Cardiac Disease: Yes - parents -[place] Physical Exam - Physical Exam General Appearance: Alert, Anxious, No apparent distress Eye Exam: bilateral normal Ears, Nose, Throat: hearing grossly normal, normal ENT inspection Neck: non-tender, supple Respiratory: chest non-tender, lungs clear, normal breath sounds Cardiovascular/Chest: normal peripheral pulses, regular rate, rhythm, no murmur Peripheral Pulses: radial,right: 2+, radial,left: 2+ Gastrointestinal/Abdominal: normal bowel sounds, non tender, soft, no organomegaly Rectal Exam: normal rectal tone, heme negative stool, other - pasty stool rectal vault Back Exam: normal inspection Extremity: no pedal edema, no calf tenderness Neurologic: alert, normal mood/affect, oriented x 3 Progress - Progress Progress: 03/22/17 23:02 Last Vital Signs Temp 98.0 F 03/22/17 22:00 Pulse 71 03/22/17 22:00 Resp 20 03/22/17 22:00 BP 111/80 03/22/17 22:00 Pulse Ox 92 L 03/22/17 22:00 Had bowel movement after dulcolax and fleets enema - EKG/XRAY/CT XRAY: abdomen - non specific Departure - Departure Clinical Impression: Constipation by delayed colonic transit, Abdominal discomfort Time of Disposition: 23:03 Disposition: Discharge to Home or Self Care Condition: Good Departure Forms: ED Discharge - Pt. Copy, Patient Portal Self Enrollment Diet: other - increase oral intake fiber diet Referrals: Naomi Mora NP [Primary Care Provider] - 1-2 Weeks Home Medications: Ambulatory Orders Aspirin [(None)] 325 mg PO DAILY 01/05/17 Cyanocobalamin [Vitamin B-12] 1,000 mcg PO DAILY 01/05/17 Additional Instructions: May take metamucil one packet daily as needed -over the counter
--- NOTE | 2017-03-22 21:49 | RAD ---
EXAM DESCRIPTION: Abdomen Flat Upright CLINICAL HISTORY: pain COMPARISON: None FINDINGS: Supine and upright images of the abdomen were submitted. The lungs are hyperinflated. There are small bilateral pleural effusions. Moderate stool is in the colon. Loops of air-filled small bowel are mildly to moderately dilated. There is no free air in the abdomen. IMPRESSION: Constipation likely causes mild to moderate dilatation of loops of small bowel. If symptoms persist after evacuation, follow-up is recommended. Electronically signed by: Enrrique Haynes 03/22/2017 9:48 PM [facility]
--- NOTE | 2017-03-22 21:54 | RAD ---
EXAM DESCRIPTION: Chest,1 View CLINICAL HISTORY: pain COMPARISON: 01/05/2017 FINDINGS: There is mildly increased thickening of interstitial markings at the left lung base, worse since the prior exam. Hyperinflation persists. Cardiac silhouette is within normal limits. There is no other focal parenchymal or pleural disease. IMPRESSION: Left lung base interstitial thickening. Otherwise unremarkable. Electronically signed by: Enrrique Haynes 03/22/2017 9:53 PM [facility]
[2017-03-22] MEDS ORDERED: BISACODYL SUPPOSITORY 10 MG PR ONE (21:56)
[2017-03-22] MEDS ORDERED: MINERAL OIL 133 ML BTTL PR ONE (21:56)
[2017-03-22 22:09] VITALS: BP 111/80; TEMP 98; O2SAT 92
== END 2017-03-22 23:08 | disposition home or self-care (01) ==
LOC: ER 19:36
DX: K59.01 Slow transit constipation (principal); J44.9 Chronic obstructive pulmonary disease, unspecified; Z87.891 Personal history of nicotine dependence; Z79.82 Long term (current) use of aspirin

== ENCOUNTER 2017-05-20 12:30 | Emergency (ER) | payer MEDICARE, MEDICAID ==
[2017-05-20] MEDS ORDERED: KETOROLAC TROMETHAMINE INJ 30 MG/ML VIAL IV ONE (12:58)
--- NOTE | 2017-05-20 13:11 | ED.PDOC ---
History of Present Illness - General Chief Complaint: Respiratory Problem Stated Complaint: sob, cough Time Seen by Provider: 05/20/17 12:57 Additional Information: CHEST PAIN, ONSET LAST PM. IVIS L>R. SHARP, INCREASE WITH MOVEMENT AND POSITIONS. - History of Present Illness Timing/Duration: other - 1 DAY Severity: moderate Improving Factors: nothing Worsening Factors: nothing Associated Symptoms: denies symptoms Allergies/Adverse Reactions: Allergies NO KNOWN ALLERGY Allergy (Verified 05/20/17 12:41) Home Medications: Ambulatory Orders Aspirin [(None)] 325 mg PO DAILY 01/05/17 Cyanocobalamin [Vitamin B-12] 1,000 mcg PO DAILY 01/05/17 Indomethacin 50 mg PO TID PRN #14 cap 05/20/17 Sulfamethoxazole-Trimethoprim [Bactrim Ds 800-160 mg] 1 tab PO BID #20 tab 05/20 Review of Systems - Review of Systems Constitutional: Denies: chills, fever EENTM: States: no symptoms reported Respiratory: States: short of breath. Denies: cough, wheezing Cardiology: Denies: chest pain Gastrointestinal/Abdominal: States: no symptoms reported Genitourinary: States: no symptoms reported Musculoskeletal: States: no symptoms reported Skin: States: no symptoms reported Neurological: States: no symptoms reported Endocrine: States: no symptoms reported Past Medical History (General) - Patient Medical History Hx Seizures: No Hx Stroke: No Hx Dementia: No Hx Asthma: No Hx of COPD: Yes Hx Cardiac Disorders: Yes Hx Congestive Heart Failure: No Hx Pacemaker: No Hx Hypertension: No Hx Thyroid Disease: No Hx Diabetes: No Hx Gastroesophageal Reflux: No Hx Renal Disease: No Hx Cancer: No Hx of HIV: No Hx Hepatitis C: No Hx MRSA: No Surgical History: other - Vaccination History Hx Tetanus, Diphtheria Vaccination: Yes Hx Influenza Vaccination: No Hx Pneumococcal Vaccination: No - Social History Hx Tobacco Use: Yes Cigarettes Packs Per Day: 1 Hx Alcohol Use: No Hx Substance Use: No Hx Substance Use Treatment: No Hx Depression: No Hx Physical Abuse: No Hx Emotional Abuse: No Family Medical History - Family History Father Family History: No Known Living Status: Hx Cardiac Disease: Yes - parents -[place] Physical Exam - Physical Exam General Appearance: No apparent distress, Other - THIN Eye Exam: bilateral normal Ears, Nose, Throat: hearing grossly normal, normal ENT inspection Neck: non-tender, full range of motion Respiratory: lungs clear, no respiratory distress, other - DIMINISHED IVIS, SATS 96% ON RA Cardiovascular/Chest: regular rate, rhythm, no murmur Gastrointestinal/Abdominal: normal bowel sounds, non tender, soft Back Exam: normal inspection Extremity: normal range of motion, normal inspection Neurologic: alert, normal mood/affect Skin Exam: normal color, warm/dry Lymphatic: no adenopathy Progress - Progress Progress: 05/20/17 15:04 FEELS BETTER - EKG/XRAY/CT EKG: Best - 54, NL AXIS, NL INTERVALS, RBBB, , Sinus, nonspecific ST T wave Chg - NAIP, , Unchanged from - 01-05-17 XRAY: chest - COPD, KYPHOPLASTY, NOEMI. Departure - Departure Clinical Impression: Pleurisy, COPD exacerbation Time of Disposition: 15:06 Disposition: Discharge to Home or Self Care Condition: Good Departure Forms: ED Discharge - Pt. Copy, Patient Portal Self Enrollment Instructions: DI for Pleurisy Referrals: Naomi Mora NP [Primary Care Provider] - 1-2 Weeks Prescriptions: Indomethacin 50 mg PO TID PRN #14 cap PRN Reason: Pain Sulfamethoxazole-Trimethoprim [Bactrim Ds 800-160 mg] 1 tab PO BID #20 tab Home Medications: Ambulatory Orders Aspirin [(None)] 325 mg PO DAILY 01/05/17 Cyanocobalamin [Vitamin B-12] 1,000 mcg PO DAILY 01/05/17 Indomethacin 50 mg PO TID PRN #14 cap 05/20/17 Sulfamethoxazole-Trimethoprim [Bactrim Ds 800-160 mg] 1 tab PO BID #20 tab 05/20
--- NOTE | 2017-05-20 13:28 | RAD ---
EXAM DESCRIPTION: Chest,2 Views CLINICAL HISTORY: CP COMPARISON: March 22, 2017 FINDINGS: The cardiomediastinal silhouette is unremarkable. There is no airspace consolidation or pleural effusion. The lungs are hyperinflated. There is been previous vertebroplasty at several levels in the midthoracic spine. There is no pneumothorax or acute fracture. 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 Electronically signed by: Tarun Bhakta MD 05/20/2017 1:27 PM [facility]
[2017-05-20 15:40] VITALS: BP 111/77; TEMP 98.5; O2SAT 94
== END 2017-05-20 15:35 | disposition home or self-care (01) ==
LOC: ER 12:30
DX: J44.1 Chronic obstructive pulmonary disease with (acute) exacerbation (principal); R09.1 Pleurisy; F17.210 Nicotine dependence, cigarettes, uncomplicated
CPT/HCPCS: 36415; 71046; 80053; 85025; 93005; J1885

== ENCOUNTER 2017-05-24 09:54 | Emergency (ER) | payer MEDICARE, MEDICAID ==
[2017-05-24] MEDS ORDERED: IPRATROPIUM/ALBUTEROL 3 ML VIAL NEB ONE (10:09)
[2017-05-24] MEDS ORDERED: SODIUM CHLORIDE 0.9% 1000ML 1,000 ML IVS ONE (10:10)
[2017-05-24] MEDS ORDERED: ONDANSETRON INJ 4 MG/2 ML VIAL IV ONE (10:10)
[2017-05-24] MEDS ORDERED: PANTOPRAZOLE SODIUM IV 40 MG VIAL IV ONE (10:10)
--- NOTE | 2017-05-24 10:13 | ED.PDOC ---
History of Present Illness - General Stated Complaint: weakness, SOB Time Seen by Provider: 05/24/17 10:02 Source: patient, family Exam Limitations: no limitations - History of Present Illness Timing/Duration: 1 week Severity: severe Improving Factors: nothing Worsening Factors: movement Associated Symptoms: chest pain, fever/chills, shortness of breath, weakness - falling at home Allergies/Adverse Reactions: Allergies NO KNOWN ALLERGY Allergy (Verified 05/24/17 10:19) Home Medications: Ambulatory Orders Aspirin [(None)] 325 mg PO DAILY 01/05/17 Cyanocobalamin [Vitamin B-12] 1,000 mcg PO DAILY 01/05/17 Indomethacin 50 mg PO TID PRN #14 cap 05/20/17 Sulfamethoxazole-Trimethoprim [Bactrim Ds 800-160 mg] 1 tab PO BID #20 tab 05/20 Hyoscyamine Sulfate [Anaspaz] 0 mg PO Q4HR PRN #20 tab 05/24/17 Ondansetron Tab [Zofran Tab] 4 mg PO Q4HR PRN #15 tab 05/24/17 Pantoprazole Sodium [Protonix] 20 mg PO QDAC #30 tab 05/24/17 Review of Systems - Review of Systems Constitutional: States: malaise, weakness EENTM: Denies: nose congestion, throat pain Respiratory: States: short of breath. Denies: cough, orthopnea Cardiology: States: chest pain. Denies: edema, syncope Gastrointestinal/Abdominal: States: abdominal pain, other - anorexia. Denies: nausea, vomiting Genitourinary: States: no symptoms reported Musculoskeletal: Denies: joint pain, muscle pain Skin: States: no symptoms reported. Denies: rash Neurological: States: weakness. Denies: headache, numbness Endocrine: States: no symptoms reported Hematologic/Lymphatic: States: no symptoms reported Past Medical History (General) - Patient Medical History Hx Seizures: No Hx Stroke: No Hx Dementia: No Hx Asthma: No Hx of COPD: Yes Hx Cardiac Disorders: Yes Hx Congestive Heart Failure: No Hx Pacemaker: No Hx Hypertension: No Hx Thyroid Disease: No Hx Diabetes: No Hx Gastroesophageal Reflux: No Hx Renal Disease: No Hx Cancer: No Hx of HIV: No Hx Hepatitis C: No Hx MRSA: No - Vaccination History Hx Tetanus, Diphtheria Vaccination: Yes Hx Influenza Vaccination: No Hx Pneumococcal Vaccination: No - Social History Hx Tobacco Use: Yes Hx Alcohol Use: No Hx Substance Use: No Hx Substance Use Treatment: No Hx Depression: No Hx Physical Abuse: No Hx Emotional Abuse: No Family Medical History - Family History Father Family History: No Known Living Status: Hx Cardiac Disease: Yes - parents -MS Physical Exam - Physical Exam General Appearance: Alert, Emaciated, Lethargic Eye Exam: bilateral normal Ears, Nose, Throat: hearing grossly normal, other - dry oral mucosa Neck: non-tender, supple Respiratory: chest non-tender, lungs clear, no respiratory distress Cardiovascular/Chest: normal peripheral pulses, regular rate, rhythm, no edema Gastrointestinal/Abdominal: normal bowel sounds, soft, tenderness - in epigastrium Extremity: normal range of motion, normal inspection Neurologic: alert, normal mood/affect, oriented x 3 Skin Exam: normal color, warm/dry Lymphatic: no adenopathy Progress - EKG/XRAY/CT EKG: Sinus - Normal sinus rhythm, RBBB Comments: rate 69, CT 140, QRS 128, QTc 443 Departure - Departure Clinical Impression: Dehydration, mild, Influenza Gastritis Qualifiers: Gastritis type: unspecified gastritis Chronicity: acute Gastritis bleeding: without bleeding Qualified Code(s): K29.00 - Acute gastritis without bleeding COPD (chronic obstructive pulmonary disease) Qualifiers: COPD type: unspecified COPD Qualified Code(s): J44.9 - Chronic obstructive pulmonary disease, unspecified Disposition: Discharge to Home or Self Care Referrals: Naomi Mora DAM OPERATOR [Primary Care Provider] - 1-2 Weeks Prescriptions: Hyoscyamine Sulfate [Anaspaz] 0 mg PO Q4HR PRN #20 tab PRN Reason: Abdominal Cramping Ondansetron Tab [Zofran Tab] 4 mg PO Q4HR PRN #15 tab PRN Reason: Nausea/Vomiting Pantoprazole Sodium [Protonix] 20 mg PO QDAC #30 tab Home Medications: Ambulatory Orders Aspirin [(None)] 325 mg PO DAILY 01/05/17 Cyanocobalamin [Vitamin B-12] 1,000 mcg PO DAILY 01/05/17 Indomethacin 50 mg PO TID PRN #14 cap 05/20/17 Sulfamethoxazole-Trimethoprim [Bactrim Ds 800-160 mg] 1 tab PO BID #20 tab 05/20 Hyoscyamine Sulfate [Anaspaz] 0 mg PO Q4HR PRN #20 tab 05/24/17 Ondansetron Tab [Zofran Tab] 4 mg PO Q4HR PRN #15 tab 05/24/17 Pantoprazole Sodium [Protonix] 20 mg PO QDAC #30 tab 05/24/17
[2017-05-24 10:19] VITALS: TEMP 100.4
--- NOTE | 2017-05-24 10:55 | RAD ---
EXAM DESCRIPTION: Chest,1 View CLINICAL HISTORY: sob COMPARISON: May 20, 2017 IMPRESSION: Single AP portable upright view of the chest shows cardiac silhouette and pulmonary vasculature to be within normal limits. Lungs are mildly hyperinflated without acute appearing infiltrate or consolidation. Vertebral augmentation in the mid thoracic spine is again seen unchanged from previous. No obvious pleural effusion or pneumothorax is seen. Electronically signed by: Gio Cervantes MD 05/24/2017 10:54 AM SOFTWARE CONFIGURATION SPECIALIST
[2017-05-24] MEDS ORDERED: ALUM & MAG HYDROX-SIMETHICONE 30 ML, LIDOCAINE VISCOUS 2% 15 ML PO ONE ×2 (11:35)
[2017-05-24] MEDS ORDERED: ALUM & MAG HYDROX-SIMETHICONE 30 ML UD ONE (11:44)
[2017-05-24] MEDS ORDERED: LIDOCAINE HCL 2% (MOUTH-THROAT) 15 ML UD ONE (11:44)
[2017-05-24 12:47] VITALS: BP 121/74; O2SAT 91
== END 2017-05-24 12:47 | disposition home or self-care (01) ==
LOC: ER 09:54
DX: J11.1 Influenza due to unidentified influenza virus with other respiratory manifestations (principal); E86.0 Dehydration; K29.00 Acute gastritis without bleeding; J44.9 Chronic obstructive pulmonary disease, unspecified; I45.10 Unspecified right bundle-branch block
CPT/HCPCS: 71045; 80053; 84484; 85025; 87502; 93005; 94640; J2405; J7030; J7620

== ENCOUNTER 2018-02-16 16:23 | Emergency (ER) | payer MEDICARE, MEDICAID ==
--- NOTE | 2018-02-16 16:32 | ED.PDOC ---
History of Present Illness - General Chief Complaint: Chest Pain/MD Stated Complaint: Chest pain Time Seen by Provider: 02/16/18 16:32 Exam Limitations: no limitations - History of Present Illness Initial Comments: Denzel Bedolla 72 y/o male stated had felt someone sitting on his chest since kalia.13 Feb 2018 which had been constant since it started .Denies N/V SOB diaphoresis ,dizziness,.Stated had cardiac cath 2007.Had subsided on arrival at ER stating almost gone-his symptoms. Timing/Duration: other - see hpi Location: central Activities at Onset: none Prior Chest Pain/Cardiac Workup: cardiac cath - 2007 Improving Factors: nothing Worsening Factors: nothing Nitro Today/Relief: no nitro taken today Aspirin Treatment Today: 81 mg x 4 Associated Symptoms: cough - chronic -copd Allergies/Adverse Reactions: Allergies NO KNOWN ALLERGY Allergy (Verified 05/24/17 10:19) Review of Systems - Review of Systems Constitutional: States: no symptoms reported EENTM: States: no symptoms reported Respiratory: States: no symptoms reported Cardiology: States: see HPI Gastrointestinal/Abdominal: States: no symptoms reported Genitourinary: States: no symptoms reported Musculoskeletal: States: no symptoms reported Skin: States: no symptoms reported Neurological: States: no symptoms reported Past Medical History (General) - Patient Medical History Hx Seizures: No Hx Stroke: No Hx Dementia: No Hx Asthma: No Hx of COPD: Yes Hx Cardiac Disorders: Yes Hx Congestive Heart Failure: No Hx Pacemaker: No Hx Hypertension: No Hx Thyroid Disease: No Hx Diabetes: No Hx Gastroesophageal Reflux: No Hx Renal Disease: No Hx Cancer: No Hx of HIV: No Hx Hepatitis C: No Hx MRSA: No Surgical History: other - lumbar,cardiac cath,colonoscopy - Vaccination History Hx Tetanus, Diphtheria Vaccination: Yes Hx Influenza Vaccination: No Hx Pneumococcal Vaccination: No - Social History Hx Tobacco Use: Yes Hx Alcohol Use: No Hx Substance Use: No Hx Substance Use Treatment: No Hx Depression: No Hx Physical Abuse: No Hx Emotional Abuse: No - Activities of Daily Living Patient Lives Alone: Yes Grooming Ability: Independent Eating (Feeding) Ability: Independent Toileting Ability: Independent Family Medical History - Family History Father Family History: No Known Living Status: Hx Cardiac Disease: Yes - parents -MD Physical Exam - Physical Exam General Appearance: Alert, Comfortable, No apparent distress Eyes, Ears, Nose, Throat Exam: normal ENT inspection, other - edentulous Neck: non-tender, full range of motion, supple Respiratory: chest non-tender, lungs clear, normal breath sounds, no respiratory distress Cardiovascular/Chest: normal peripheral pulses, regular rate, rhythm, no murmur Peripheral Pulses: radial,right: 2+, radial,left: 2+ Gastrointestinal/Abdominal: non tender, soft, no organomegaly Extremity: non-tender, normal inspection, no pedal edema, no calf tenderness Neurologic: alert, oriented x 3 Skin Exam: normal color, warm/dry Progress - Progress Progress: 02/16/18 18:29 Vital Signs - 8 hr 02/16/18 02/16/18 17:05 18:00 Pulse Rate [ 65 54 L Apical] Respiratory 18 19 Rate Blood Pressure 106/75 124/77 [Left Arm] O2 Sat by Pulse 95 94 L Oximetry 02/16/18 19:59 Discuss test results with patient no myocardial injury stated feeling great recommended hospital obs but declined stated has appointment with his a r specialist on Feb.Stated was hospitalized here before for same symptoms they could not find cause of his symptoms and was sent home. 02/16/18 20:04 - Results/Orders Results/Orders: 02/16/18 16:30 Telemetry ONCE EKG STAT 02/16/18 16:31 Pulse Oximetry Assessment DAILY 02/16/18 16:33 IV Care:Saline Lock per Protoc QSHIFT 02/17/18 09:00 Pulse Ox Daily Laboratory Results - last 24 hr 02/16/18 02/16/18 16:43 16:43 WBC 5.4 RBC 4.62 L Hgb 14.5 Hct 42.6 MCV 92.3 MCH 31.3 H MCHC 33.9 RDW 13.3 Plt Count 173 MPV 9.1 Absolute Neuts (auto) 3.00 Absolute Lymphs (auto) 1.70 Absolute Monos (auto) 0.50 Absolute Eos (auto) 0.10 Absolute Basos (auto) 0.00 Neutrophils % 55.4 Lymphocytes % 32.3 Monocytes % 10.1 H Eosinophils % 1.8 Basophils % 0.4 PT 9.4 INR 0.94 PTT (SP) 23.5 Sodium 135 Potassium 3.6 Chloride 101 Carbon Dioxide 27 Anion Gap 10.6 L BUN 15 Creatinine 0.87 BUN/Creatinine Ratio 17.2 Random Glucose 100 Serum Osmolality 271.0 L Calcium 8.8 Magnesium 1.8 Total Bilirubin 0.5 Direct Bilirubin 0.1 Indirect Bilirubin 0.4 AST 28 ALT 19 Alkaline Phosphatase 48 Creatine Kinase 29 L CK-MB (CK-2) 1.4 CK-MB (CK-2) % 4.83 H Troponin I < 0.02 B-Natriuretic Peptide 26.1 Serum Total Protein 7.5 Albumin 3.8 - EKG/XRAY/CT EKG: Sinus, RBBB Comments: hr-62 XRAY: chest - copd changes Departure - Departure Clinical Impression: Chest pain Qualifiers: Chest pain type: unspecified Qualified Code(s): R07.9 - Chest pain, unspecified Time of Disposition: 20:02 Disposition: Discharge to Home or Self Care Departure Forms: ED Discharge - Pt. Copy, Patient Portal Self Enrollment Instructions: DI for Chest Pain Referrals: Naomi Mora, CUFFING MACHINE OPERATOR [Primary Care Provider] - 1-2 Weeks Additional Instructions: Continue with all home medication including Baby aspirin-81 mg daily;Return to ER as needed;Keep appointment with Clinical Applications Specialist on
--- NOTE | 2018-02-16 16:56 | RAD ---
PROCEDURE: XR CHEST 1 VIEW HISTORY: chest pain COMPARISON: None TECHNIQUE: Single projection of the chest was done. FINDINGS: There are underlying changes of COPD . There are no discrete airspace infiltrates, pneumothoraces or pleural effusions. The pulmonary vascularity is normal. The cardiomediastinal silhouette is unremarkable for patient's age and sex. IMPRESSION: There is no acute pleural-parenchymal process seen in the imaged lung laguerre. Location of Interpretation: Teleradiology Electronically signed by: Benoit Rutledge MD 02/16/2018 4:54 PM CDT Workstation: [id number]
[2018-02-16] MEDS: ASPIRIN (CHEWABLE) 81 MG TAB PO ONE (18:26)
[2018-02-16 20:22] VITALS: BP 123/81; TEMP 98.1; O2SAT 97
== END 2018-02-16 20:22 | disposition home or self-care (01) ==
LOC: ER 16:23
DX: R07.9 Chest pain, unspecified (principal); I45.10 Unspecified right bundle-branch block; J44.9 Chronic obstructive pulmonary disease, unspecified; Z87.891 Personal history of nicotine dependence

== ENCOUNTER 2018-04-19 09:04 | Emergency (ER) | payer MEDICARE, MEDICAID ==
[2018-04-19 09:31] VITALS: TEMP 98.7
[2018-04-19] MEDS ORDERED: MORPHINE SULFATE INJ 10 MG/ML VIAL IV ONE (09:40)
--- NOTE | 2018-04-19 09:43 | ED.PDOC ---
History of Present Illness - General Chief Complaint: Abdominal Pain Stated Complaint: right lower abdominal pain Time Seen by Provider: 04/19/18 09:37 Source: patient Exam Limitations: no limitations - History of Present Illness Initial Comments: Patient presents with RLQ pain for five hours. Constant, aching, non-radiating, worse with movement, better with rest. No diarrhea. No N/V. Has not eaten, yet, today. No other associated symptoms. No previous surgeries. No other complaints. Timing/Duration: 4-6 hours Severity: moderate Worsening Factors: rest Associated Symptoms: other - movement Allergies/Adverse Reactions: Allergies NO KNOWN ALLERGY Allergy (Verified 05/24/17 10:19) Home Medications: Ambulatory Orders Ketorolac Tromethamine [Toradol Tabs] 10 mg PO Q6HRS PRN #12 tab 04/19/18 Tamsulosin HCl [Flomax] 0.4 mg PO DAILY #6 cap 04/19/18 Past Medical History (General) - Patient Medical History Hx Seizures: No Hx Stroke: No Hx Dementia: No Hx Asthma: No Hx of COPD: Yes Hx Cardiac Disorders: Yes Hx Congestive Heart Failure: No Hx Pacemaker: No Hx Hypertension: No Hx Thyroid Disease: No Hx Diabetes: No Hx Gastroesophageal Reflux: No Hx Renal Disease: No Hx Cancer: No Hx of HIV: No Hx Hepatitis C: No Hx MRSA: No Surgical History: other - Vaccination History Hx Tetanus, Diphtheria Vaccination: Yes Hx Influenza Vaccination: No Hx Pneumococcal Vaccination: No - Social History Hx Tobacco Use: Yes Hx Alcohol Use: No Hx Substance Use: No Hx Substance Use Treatment: No Hx Depression: No Hx Physical Abuse: No Hx Emotional Abuse: No Family Medical History - Family History Father Family History: No Known Living Status: Hx Cardiac Disease: Yes - parents -IA Physical Exam - Physical Exam General Appearance: Alert Eye Exam: bilateral normal Ears, Nose, Throat: normal ENT inspection Neck: non-tender, full range of motion, supple Respiratory: lungs clear Cardiovascular/Chest: normal peripheral pulses, regular rate, rhythm Gastrointestinal/Abdominal: normal bowel sounds, other - TTP over RLQ. There is guarding. No rebound tenderness. Negative Rovsing's sign. Back Exam: no CVA tenderness Neurologic: no motor/sensory deficits, alert, normal mood/affect, oriented x 3 Skin Exam: normal color Lymphatic: no adenopathy Progress - Progress Progress: 04/19/18 11:17 Laboratory Tests 04/19/18 04/19/18 04/19/18 09:39 09:40 09:40 WBC 9.9 RBC 4.59 L Hgb 14.5 Hct 43.8 MCV 95.4 H MCH 31.5 H MCHC 33.1 RDW 13.8 Plt Count 203 MPV 9.5 Absolute Neuts (auto) 6.70 Absolute Lymphs (auto) 2.40 Absolute Monos (auto) 0.50 Absolute Eos (auto) 0.20 Absolute Basos (auto) 0.00 Neutrophils % 68.2 Lymphocytes % 24.2 Monocytes % 5.2 Eosinophils % 2.0 Basophils % 0.4 Sodium 139 Potassium 3.8 Chloride 102 Carbon Dioxide 26 Anion Gap 14.8 BUN 16 Creatinine 1.21 BUN/Creatinine Ratio 13.2 Random Glucose 111 H Serum Osmolality 279.4 Calcium 9.0 Total Bilirubin 0.9 AST 24 ALT 14 Alkaline Phosphatase 51 Serum Total Protein 7.8 Albumin 3.9 Globulin 3.9 H Albumin/Globulin Ratio 1.0 L Lipase 37 Urine Color Urine Appearance Urine pH Ur Specific [place] Urine Protein Urine Glucose (UA) Urine Ketones Urine Blood Urine Nitrite Urine Bilirubin Urine Urobilinogen Ur Leukocyte Esterase Urine RBC Urine WBC Ur Epithelial Cells Urine Bacteria 04/19/18 10:48 WBC RBC Hgb Hct MCV MCH MCHC RDW Plt Count MPV Absolute Neuts (auto) Absolute Lymphs (auto) Absolute Monos (auto) Absolute Eos (auto) Absolute Basos (auto) Neutrophils % Lymphocytes % Monocytes % Eosinophils % Basophils % Sodium Potassium Chloride Carbon Dioxide Anion Gap BUN Creatinine BUN/Creatinine Ratio Random Glucose Serum Osmolality Calcium Total Bilirubin AST ALT Alkaline Phosphatase Serum Total Protein Albumin Globulin Albumin/Globulin Ratio Lipase Urine Color Brown Urine Appearance Cloudy Urine pH 5.5 Ur Specific [place] 1.025 Urine Protein 30 Urine Glucose (UA) Negative Urine Ketones Negative Urine Blood Large H Urine Nitrite Negative Urine Bilirubin Negative Urine Urobilinogen 0.2 Ur Leukocyte Esterase Negative Urine RBC Tntc H Urine WBC Obscured by rbc's H Ur Epithelial Cells 0 Urine Bacteria Obscured by rbc's H CT ab/pelvis showed 2 mm ureteral stone in right ureter. UA showed large blood. There was a 4 x 5 mm nodule in the left lung. Patient is a smoker. I advised him to get a follow up CT within 12 months because he is high risk. Care instructions given. E.R. warnings given. Questions were elicited and answered. Patient voiced understanding and agreement with the plan. 04/19/18 11:19 Departure - Departure Clinical Impression: Ureteric stone Disposition: Discharge to Home or Self Care Condition: Good Departure Forms: ED Discharge - Pt. Copy, Patient Portal Self Enrollment Instructions: Kidney Stones (DC) Diet: other - Increase oral fluids. Activity: increase activity as tolerated Referrals: Naomi Mora DEBURRER STRIP [Primary Care Provider] - 1-2 Weeks Prescriptions: Ketorolac Tromethamine [Toradol Tabs] 10 mg PO Q6HRS PRN #12 tab PRN Reason: Pain Tamsulosin HCl [Flomax] 0.4 mg PO DAILY #6 cap Home Medications: Ambulatory Orders Ketorolac Tromethamine [Toradol Tabs] 10 mg PO Q6HRS PRN #12 tab 04/19/18 Tamsulosin HCl [Flomax] 0.4 mg PO DAILY #6 cap 04/19/18 Comments: Take medications as prescribed. You have a small mass in your left lung. You need to see your regular doctor or come to the clinic at the hospital in about 6-12 months to have it x-rayed again. Return to the E.R. if pain continues for more than 48 more hours or for temperature above 100.4.
--- NOTE | 2018-04-19 11:03 | CT ---
EXAM DESCRIPTION: Abdomen/Pelvis w/Contrast CLINICAL HISTORY: 73 years Male RLQ pain COMPARISON: CT chest and abdomen dated 02/13/2017 TECHNIQUE: Contiguous axial images were obtained through the abdomen and pelvis are the administration of intravenous contrast and/or oral contrast. Coronal and sagittal reconstructions are also obtained and reviewed. This exam was performed according to our departmental dose-optimization program, which includes automated exposure control, adjustment of the mA and/or kV according to patient size and/or use of iterative reconstruction technique. FINDINGS: LUNG BASES: HEART: Unremarkable. There is no cardiomegaly. LUNGS: Hyperinflation and hyperlucency of the lungs is consistent with COPD, more specifically centrilobular emphysema or reactive airway disease. No acute consolidation. There is a noncalcified pulmonary nodule in the lingula or anterior left lower lobe which measures 0.4 cm x 0.5 cm. PLEURAL SPACES: There is no evidence of pleural fluid or pneumothorax . ABDOMEN: LIVER: Normal in size and configuration. Tiny hypodensity in the medial segment of the left lower lobe is unchanged and requires no follow-up. There are no other significant focal defects There is no evidence of biliary ductal dilatation. GALLBLADDER AND BILE DUCTS: Unremarkable. There is no evidence of calculi or pericholecystic inflammatory changes. There is no biliary ductal dilatation. PANCREAS: Unremarkable. No ductal dilatation, inflammatory changes or mass. SPLEEN: Unremarkable. No splenomegaly or focal defects. ADRENALS: Unremarkable. No mass or calcification. KIDNEYS AND URETERS: There is no evidence of solid renal mass. There are no nonobstructive intrarenal calculi. Small hypodensities in the kidneys bilaterally are most likely cysts with the largest in the left kidney measuring 1.6 cm in greatest diameter.S There is mild right pelvocaliectasis and proximal ureterectasis secondary to a 2 mm s calculus located in the proximal right ureter. Noted again and appearing similar is moderate left pelvocaliectasis without significant ureterectasis or discernible ureteral obstructive lesion or calculus. The fluid in the upper pole collecting system is slightly more dense than in the lower pole which can indicate infection or a small amount of hemorrhage. DISTAL ESOPHAGUS, STOMACH AND BOWEL: The distal esophagus is unremarkable. There is a small hiatal hernia. The stomach is otherwise unremarkable. A few focal mildly distended loops of small bowel in the left mid abdomen containing air-fluid levels may represent a mild focal ileus in the absence of a discernible obstructing lesion. These loops measure 2.7 cm in diameter. There is a hypodense focus in a loop of small bowel in the right paracentral mid abdomen measuring 1.4 cm with areas of attenuation in the fat range. This could represent a small lipoma. The colon is unremarkable. The rectum is unremarkable. No evidence of intestinal obstruction. PELVIS: APPENDIX: The appendix is not discretely visualized; however, there is no definite inflammation in the right lower quadrant to suggest acute appendicitis. Short-term repeat imaging with contrast is suggested if there is continued clinical concern for appendicitis. BLADDER: Unremarkable, allowing for the degree of distention. There is no evidence of cystolithiasis or bladder mass. REPRODUCTIVE: The prostate is enlarged, measuring 5.8 cm T . The seminal vesicles appear unremarkable. ABDOMEN and PELVIS: INTRAPERITONEAL SPACE: Unremarkable. No free air or free fluid. No significant focal fluid collection. BONES AND JOINTS: The visualized osseous structures appear demineralized. There is mild anterior wedging of T11, chronicity uncertain. No areas of osseous destruction. No osteoblastic changes. Kidney mass and there is some SOFT TISSUES: Unremarkable. VASCULATURE: Scattered atherosclerosis but otherwise unremarkable. No evidence of abdominal aortic aneurysm. Lungs are LYMPH NODES: Unremarkable. There is no evidence of mesenteric, retroperitoneal, pelvic or inguinal adenopathy. IMPRESSION: 2 mm obstructive calculus in the proximal right ureter. No significant change in left pelvocaliectasis. However, the urine in the upper pole collecting system is slightly more dense than in the lower pole which can indicate infection or a small amount of hemorrhage 5 mm x 4 mm noncalcified pulmonary nodule in the lingula or anterior left lower lobe. 2017 Fleischner Society Recommendations for Solid Lung Nodules based on size (average of long- and short-axis diameters) of nodule or largest nodule if multiple previous. Measured from things and measures hydronephrosis and one measures reformatted images. Nodule Size <6 mm Low-Risk Patient: No routine follow-up Nodule Size <6 mm High-Risk Patient: Optional CT at 12 months These guidelines do not apply to patients younger than 35 years, immunocompromised patients, and patients with cancer. F/u in patients with significant comorbidities as clinically warranted. For lung cancer screening, adhere to Lung-RADS guidelines. Reference: Radiology. 2017 [place]; 284(1):228-24 Suspect small lipoma in a loop of small bowel in the right paracentral mid abdomen. Prostatomegaly. Recommend correlation with serum psa. Remainder of findings as described above. Electronically signed by: Mary Castillo MD 04/19/2018 11:02 AM MIDDLE SCHOOL COUNSELOR
[2018-04-19] MEDS ORDERED: TAMSULOSIN 0.4 MG CAP PO ONE (11:33)
[2018-04-19] MEDS ORDERED: TAMSULOSIN 0.4 MG CAP ONE (11:34)
[2018-04-19 11:48] VITALS: BP 121/81; O2SAT 97
== END 2018-04-19 11:47 | disposition home or self-care (01) ==
LOC: ER 09:04
DX: N20.1 Calculus of ureter (principal); R91.1 Solitary pulmonary nodule; J44.9 Chronic obstructive pulmonary disease, unspecified; I51.9 Heart disease, unspecified; F17.200 Nicotine dependence, unspecified, uncomplicated
CPT/HCPCS: 74177; 80053; 81001; 83690; 85025; 87086; J2270

== ENCOUNTER 2018-04-20 18:40 | Emergency (ER) | payer MEDICARE, MEDICAID ==
[2018-04-20] MEDS ORDERED: KETOROLAC TROMETHAMINE INJ 30 MG/ML VIAL IM ONE (18:54)
[2018-04-20] MEDS ORDERED: HYDROcodone 7.5MG/APAP 325MG 1 EA TAB PO ONE (18:54)
[2018-04-20] MEDS ORDERED: TAMSULOSIN 0.4 MG CAP PO ONE (18:54)
--- NOTE | 2018-04-20 19:54 | ED.PDOC ---
History of Present Illness - General Chief Complaint: Abdominal Pain Stated Complaint: abdominal pain Time Seen by Provider: 04/20/18 18:45 Source: patient Exam Limitations: no limitations - History of Present Illness Initial Comments: the patient is a 73-year-old male presenting to the emergency room secondary to recurrent pain from his right ureterolithiasis. The patient was seen here yesterday and had a CT scan along with lab work showing a 2 mm stone in the right ureter. The patient's pain medications were off and of course the pain came back. He did not get any of his medications filled and he was written for yesterday. He shows up in a similar condition as yesterday. No evidence of sepsis. Timing/Duration: unsure Severity: moderate Improving Factors: nothing Worsening Factors: nothing Associated Symptoms: nausea/vomiting Allergies/Adverse Reactions: Allergies NO KNOWN ALLERGY Allergy (Verified 05/24/17 10:19) Home Medications: Ambulatory Orders Ketorolac Tromethamine [Toradol Tabs] 10 mg PO Q6HRS PRN #12 tab 04/19/18 Tamsulosin HCl [Flomax] 0.4 mg PO DAILY #6 cap 04/19/18 Tramadol HCl 50 mg PO Q8HR PRN #20 tab 04/20/18 Review of Systems - Review of Systems Constitutional: States: no symptoms reported EENTM: States: no symptoms reported Respiratory: States: no symptoms reported Cardiology: States: no symptoms reported Gastrointestinal/Abdominal: States: abdominal pain Genitourinary: States: no symptoms reported Musculoskeletal: States: back pain Skin: States: no symptoms reported Neurological: States: no symptoms reported Endocrine: States: no symptoms reported All other Systems: No Change from Baseline Past Medical History (General) - Patient Medical History Hx Seizures: No Hx Stroke: No Hx Dementia: No Hx Asthma: No Hx of COPD: Yes Hx Cardiac Disorders: Yes Hx Congestive Heart Failure: No Hx Pacemaker: No Hx Hypertension: No Hx Thyroid Disease: No Hx Diabetes: No Hx Gastroesophageal Reflux: No Hx Renal Disease: No Hx Cancer: No Hx of HIV: No Hx Hepatitis C: No Hx MRSA: No - Vaccination History Hx Tetanus, Diphtheria Vaccination: Yes Hx Influenza Vaccination: No Hx Pneumococcal Vaccination: No - Social History Hx Tobacco Use: Yes Hx Alcohol Use: No Hx Substance Use: No Hx Substance Use Treatment: No Hx Depression: No Hx Physical Abuse: No Hx Emotional Abuse: No Family Medical History - Family History Father Family History: No Known Living Status: Hx Cardiac Disease: Yes - parents -[place] Physical Exam - Physical Exam General Appearance: Alert, Obvious distress Eye Exam: bilateral normal Ears, Nose, Throat: other - hearing chronically decreased bilaterally. Poor dentition. Neck: full range of motion, supple Respiratory: no respiratory distress, no accessory muscle use Cardiovascular/Chest: normal peripheral pulses, no edema, other - regular rate Peripheral Pulses: radial,right: 2+, radial,left: 2+ Gastrointestinal/Abdominal: non tender, soft Rectal Exam: deferred Back Exam: CVA tenderness (R) Extremity: non-tender, normal inspection, no pedal edema, normal capillary refill Skin Exam: normal color Comments: Vital Signs - 24 hr 04/20/18 18:53 Temperature 99.2 F Pulse Rate [ 80 Left Brachial] Respiratory 16 Rate Blood Pressure 177/99 [Left Arm] O2 Sat by Pulse 95 Oximetry Progress - Progress Progress: 04/20/18 19:52 the patient is a 73-year-old male presenting back to the emergency room secondary to persistent pain from right sided ureterolithiasis, where he has a known 2 mm stone. He needs to get the Flomax and Toradol filled. He will be written additionally for tramadol for as needed use for pain control. He needs to keep himself very well hydrated and he needs to move around. He needs to follow-up with his primary care doctor later this week for repeat evaluation. He was given pain medications and a dose of Flomax here tonight. ER warnings were given. Departure - Departure Clinical Impression: Noncompliance, Ureterolithiasis Disposition: Discharge to Home or Self Care Condition: Fair Departure Forms: ED Discharge - Pt. Copy, Patient Portal Self Enrollment Instructions: Kidney Stones (DC) Diet: regular diet Activity: increase activity as tolerated Referrals: Naomi Mora NP [Primary Care Provider] - 1-5 Days Prescriptions: Tramadol HCl 50 mg PO Q8HR PRN #20 tab PRN Reason: Moderate Pain Home Medications: Ambulatory Orders Ketorolac Tromethamine [Toradol Tabs] 10 mg PO Q6HRS PRN #12 tab 04/19/18 Tamsulosin HCl [Flomax] 0.4 mg PO DAILY #6 cap 04/19/18 Tramadol HCl 50 mg PO Q8HR PRN #20 tab 12/30/18 Additional Instructions: the patient is a 73-year-old male presenting back to the emergency r oom secondary to persistent pain from right sided ureterolithiasis, where he has a known 2 mm stone. He needs to get the Flomax and Toradol filled. He will be written additionally for tramadol for as needed use for pain control. He needs to keep himself very well hydrated and he needs to move around. He needs to follow-up with his primary care doctor later this week for repeat evaluation. He was given pain medications and a dose of Flomax here tonight. ER warnings were given.
[2018-04-20 20:08] VITALS: BP 133/83; TEMP 98.5; O2SAT 95
== END 2018-04-20 20:08 | disposition home or self-care (01) ==
LOC: ER 18:40
DX: N20.1 Calculus of ureter (principal); J44.9 Chronic obstructive pulmonary disease, unspecified; I51.9 Heart disease, unspecified; Z91.14 Patient's other noncompliance with medication regimen; Z87.891 Personal history of nicotine dependence

== ENCOUNTER 2018-11-28 16:40 | Observation (INO) | payer MEDICARE, MEDICAID ==
[2018-11-28] MEDS ORDERED: IPRATROPIUM/ALBUTEROL 3 ML VIAL NEB ONE (16:50)
--- NOTE | 2018-11-28 17:21 | RAD ---
EXAM DESCRIPTION: Chest,1 View CLINICAL HISTORY: 73 years Male, copd, syncope COMPARISON: None. TECHNIQUE: AP portable chest. FINDINGS/IMPRESSION: Bilateral pulmonary emphysematous changes with flattening of the diaphragm and biapical pleural thickening/scarring. The lungs are otherwise clear without focal consolidation, significant pneumothorax or pleural effusion seen. The heart is normal in size. No acute osseous abnormality. Electronically signed by: Driss Salas DO 11/28/2018 5:20 PM CDT
[2018-11-28] MEDS ORDERED: KCL 20MEQ/D5 1/2NS 1,000 ML IVS ONE (18:50)
--- NOTE | 2018-11-28 19:03 | ED.PDOC ---
History of Present Illness - General Chief Complaint: Syncope/Near Syncope Stated Complaint: syncopal episode d/t heat Time Seen by Provider: 11/28/18 16:46 Source: patient Exam Limitations: no limitations - History of Present Illness Initial Comments: the patient is a 73-year-old male presenting to the emergency room after a syncopal episode. The patient had been sitting on the porch the better part of the afternoon out in the 100 heat when he got up to go in the house. Shortly after he stood up he passed out for less than a minute. This is happening to him approximately 3 times prior in the past. He does have significant lung disease in the form of COPD but does not normally require any oxygen. He is not hypoxic. He does appear dehydrated. He was diaphoretic upon arrival and was still feeling hot. He was not technically hyperthermic. No chest pain. No shortness of breath. No palpitations. He was feeling fine before he started sitting down outside. Timing/Duration: momentarily Severity: moderate Improving Factors: nothing Worsening Factors: movement Associated Symptoms: diaphoresis, loss of appetite, malaise, syncope, weakness Allergies/Adverse Reactions: Allergies NO KNOWN ALLERGY Allergy (Verified 05/24/17 10:19) Home Medications: Ambulatory Orders NK 11/28/18 Review of Systems - Review of Systems Constitutional: States: diaphoresis, malaise EENTM: States: no symptoms reported Respiratory: States: no symptoms reported Cardiology: States: syncope Gastrointestinal/Abdominal: States: no symptoms reported Genitourinary: States: no symptoms reported Musculoskeletal: States: no symptoms reported Skin: States: no symptoms reported Neurological: States: no symptoms reported Endocrine: States: excessive sweating All other Systems: No Change from Baseline Past Medical History (General) - Patient Medical History Hx Seizures: No Hx Stroke: No Hx Dementia: No Hx Asthma: No Hx of COPD: Yes Hx Cardiac Disorders: Yes Hx Congestive Heart Failure: No Hx Pacemaker: No Hx Hypertension: No Hx Thyroid Disease: No Hx Diabetes: No Hx Gastroesophageal Reflux: No Hx Renal Disease: No Hx Cancer: No Hx of HIV: No Hx Hepatitis C: No Hx MRSA: No - Vaccination History Hx Tetanus, Diphtheria Vaccination: Yes Hx Influenza Vaccination: No Hx Pneumococcal Vaccination: No - Social History Hx Tobacco Use: Yes Hx Alcohol Use: No Hx Substance Use: No Hx Substance Use Treatment: No Hx Depression: No Hx Physical Abuse: No Hx Emotional Abuse: No Family Medical History - Family History Father Family History: No Known Living Status: Hx Cardiac Disease: Yes - parents -[place] Physical Exam - Physical Exam General Appearance: Alert, Frail Eye Exam: bilateral normal Ears, Nose, Throat: hearing grossly normal, normal ENT inspection - mucous membranes are fairly dry Neck: full range of motion, supple Respiratory: lungs clear, no respiratory distress, no accessory muscle use Cardiovascular/Chest: normal peripheral pulses, regular rate, rhythm, no edema Peripheral Pulses: radial,right: 2+, radial,left: 2+, dorsalis pedis,right: 2+, dorsalis pedis,left: 2+ Gastrointestinal/Abdominal: non tender, soft Rectal Exam: deferred Back Exam: no CVA tenderness, no vertebral tenderness Extremity: non-tender, normal inspection, no pedal edema, normal capillary refill Neurologic: pest control pilot II-XII nml as tested, alert, normal mood/affect, oriented x 3 Skin Exam: diaphoresis Comments: Vital Signs - 24 hr 11/28/18 11/28/18 11/28/18 16:46 17:03 17:43 Temperature 98.3 F Pulse Rate 72 Pulse Rate [ 73 98 H Left Brachial] Respiratory 20 18 Rate Blood Pressure 115/81 111/75 [Left Arm] O2 Sat by Pulse 95 95 Oximetry 11/28/18 18:28 Temperature Pulse Rate Pulse Rate [ 65 Left Brachial] Respiratory 20 Rate Blood Pressure 92/70 [Left Arm] O2 Sat by Pulse 93 L Oximetry Progress - Progress Progress: 11/28/18 19:04 the patient's a 73-year-old male presenting to the emergency room secondary to a syncopal episode. This is most likely due to heat exhaustion and dehydration coupled with his chronic lung disease. He does have some mild hypokalemia and is being replaced on that. He has had a liter of fluid so far and he is being placed on some lower flow fluids for now. He was still technically tilt positive by pulse even after a liter of IV fluids. He may require another 2 L or so. Admit overnight for observation under telemetry monitoring. Initial workup is otherwise reassuring. - Results/Orders Results/Orders: chest x-ray is consistent with COPD. EKG shows normal sinus rhythm at 69 bpm with marketed sinus arrhythmia. Right axis deviation consistent with COPD. No definitive ST segment or T-wave changes indicative of ischemia. Laboratory Tests 11/28/18 11/28/18 11/28/18 16:49 16:49 16:49 WBC 7.6 RBC 4.08 L Hgb 12.9 L Hct 38.0 L MCV 93.2 MCH 31.5 H MCHC 33.8 RDW 14.1 Plt Count 141 MPV 9.2 Absolute Neuts (auto) 6.00 Absolute Lymphs (auto) 0.90 L Absolute Monos (auto) 0.50 Absolute Eos (auto) 0.10 Absolute Basos (auto) 0.10 Neutrophils % 79.0 H Lymphocytes % 12.1 L Monocytes % 6.6 Eosinophils % 1.4 Basophils % 0.9 Sodium 136 Potassium 3.5 L Chloride 102 Carbon Dioxide 21 Anion Gap 16.5 BUN 20 H Creatinine 1.02 BUN/Creatinine Ratio 19.6 Random Glucose 112 H Serum Osmolality 275.3 Lactic Acid 1.5 Calcium 9.1 Magnesium 2.0 Total Bilirubin 0.9 AST 19 ALT 10 Alkaline Phosphatase 42 Creatine Kinase 17 L CK-MB (CK-2) 0.8 CK-MB (CK-2) % 4.71 H Troponin I < 0.02 B-Natriuretic Peptide 36.2 Serum Total Protein 7.7 Albumin 3.9 Globulin 3.8 H Albumin/Globulin Ratio 1.0 L TSH 2.68 Departure - Departure Clinical Impression: Dehydration, moderate Heat exhaustion Qualifiers: Encounter type: initial encounter Qualified Code(s): T67.5XXA - Heat exhaustion, unspecified, initial encounter Syncope Qualifiers: Syncope type: heat syncope Encounter type: initial encounter Qualified Code(s): T67.1XXA - Heat syncope, initial encounter Disposition: Admit Patient Departure Forms: ED Discharge - Pt. Copy, Patient Portal Self Enrollment Referrals: Naomi Mora NP [Primary Care Provider] - 1-2 Weeks Home Medications: Ambulatory Orders NK 11/28/18 Decision To Admit - Decistion To Admit Decision to Admit Reason: Medical Nature Decision to Admit Date: 11/28/18 Decision to Admit Time: 19:06
--- NOTE | 2018-11-28 19:31 | HP ---
SUPERVISING PHYSICIAN: Bryson Gregory MD CHIEF COMPLAINT: Syncopal episode secondary to heat exhaustion. HISTORY OF PRESENT ILLNESS: Mr. Bedolla is a 73 year-old patient who was in the Emergency Room today after he had a syncopal episode. He noted that he had been sitting on his porch for the better part of the afternoon with the temperature being well over 102. He had gotten up and decided to walk to the tobacco show which he says is approximately 100 yards from his house. He entered the building and at some point had a syncopal episode. He notes he has had some episodes of passing out when he stands up in the past but notes this episode was probably less than a minute when he was assisted by the store pelt grader. He does have a significant history of chronic obstructive pulmonary disease because he smokes well over 2 packs a day and has for well over 50 years but does not utilize oxygen. On presentation to the Emergency Room, he was noted not to be hypoxic but did look dehydrated and was diaphoretic and still hot. It was noted he was not hyperthermic with his initial body temperature 98.3 on arrival to the Emergency Room. His laboratory studies showed he had a white count of 7,600 with a hemoglobin of 12.9, hematocrit 38.0, platelet count 141,000. Differential showed to be without a left shift. His chemistries showed just a mild hypokalemia with potassium of 3.5. BUN was elevated at 20 with creatinine 1.02 and glucose of 112, lactic acid 1.5. Liver functions were all showing to be within normal limits. Magnesium and calcium were normal. He had a troponin of less than 0.02. Urinalysis showed he had 15 of ketones, small amount of bilirubin, otherwise within normal limits. He initially had a chest x-ray in the Emergency Room and per radiology interpretation showed bilateral pulmonary emphysematous changes with flattening of the diaphragm and biapical pleural thickening and scarring, otherwise lungs were clear without any focal consolidations or pneumothorax or pleural effusions. Heart size was noted to be normal. He was given fluids in the Emergency Room and was showing to be stable. He is now going to be placed in observation for continuation of fluid therapy and close monitoring. He was placed in observation in stable condition. PAST MEDICAL HISTORY: 1. Chronic obstructive pulmonary disease. 2. Chronic tobacco abuse in the form of cigarette smoking with a 2-pack per day history for well over 50 years. PAST SURGICAL HISTORY: Back surgery. No other surgeries. CURRENT MEDICATIONS: He endorses that he is not on any chronic medications nor does he take any [id number] or herbal or medications. ALLERGIES: NO KNOWN DRUG ALLERGIES. FAMILY HISTORY: SOCIAL HISTORY: The patient smokes from one to two pack of cigarettes daily, for greater than 50 years. He denies any alcohol or illicit drug use. He does live by himself in [place], [place]. He is retired. REVIEW OF SYSTEMS: CONSTITUTIONAL: Positive for diaphoresis, general weakness and malaise. HEENT: Negative for earache, sore throat, nasal congestion. headache, vision changes. CHEST: Negative for shortness of breath, wheezing, coughing. HEART: Positive for syncopal episode but denies tachycardia, bradycardia, chest pains, palpitations, edema. ABDOMEN: Denies nausea, vomiting or diarrhea, constipation or abdominal pain. GENITOURINARY: Denies dysuria, hematuria, polyuria. MUSCULOSKELETAL: Denies arthralgias or other complaints. SKIN: Negative for unexplained lesions, rashes, moles or other changes. . NEUROLOGIC: As noted in history of present illness, positive for syncopal episode but denies ataxia or seizures or other focal deficits with no past history of cerebrovascular accident. PHYSICAL EXAMINATION: VITAL SIGNS: Temperature initially on presentation to the Emergency Room of 98.3, pulse 73, blood pressure 115/81, respirations 20, oxygen saturation 95% on room air. Admission weight 61.6 kg. GENERAL: The patient appears to be in no acute distress, he is very pleasant, he is alert. He does look quite thin, has a strong smell of tobacco and does look somewhat dehydrated but appears to be in no acute distress. HEENT: Tympanic membranes partially obscured by cerumen. NECK: Supple, non-tender, full range of motion. Oropharynx is pink with notable dry mucous membranes. No jugular venous distention. CHEST: Lung sounds clear to auscultation without any rhonchi, rales, or wheezes. CARDIOVASCULAR: Regular rate and rhythm without any appreciable murmurs, rubs, or gallops. ABDOMEN: Soft, non-tender, positive bowel sounds. EXTREMITIES: Moves all extremities without any complications and shows no cyanosis, clubbing, or edema. BACK: Without any findings of CVA tenderness or vertebral tenderness. NEUROLOGIC: He is alert and oriented x 3 with facial features being symmetrical. Extraocular movements within normal limits and no notable nystagmus. SKIN: Warm to touch but no longer diaphoretic as noted in the Emergency Room but noted to be dry with poor skin turgor. RECTAL: Deferred. LABORATORY: White count 7,600, hemoglobin 12.9, hematocrit 38.0, platelet count 141,000. Differential showed to be without a left shift. Chemistries showed a mild hypokalemia with potassium of 3.6, BUN 20, anion gap and carbon dioxide within normal limits. Creatinine 1.02, glucose 112, lactic acid 1.5. Liver functions all within normal limits. CPK 17, troponin less than 0.02. Urinalysis was within normal limits. RADIOLOGY: Chest x-ray per radiology interpretation showed bilateral pulmonary emphysematous changes with flattening of the diaphragm and biapical pleural thickening and scarring. The lungs appeared otherwise to be clear without any focal consolidations with no obvious pneumothorax or pleural effusions. Heart size was noted to be normal. EKG 12-lead showed normal sinus rhythm with rate of 69 [id number] with a notable sinus arrhythmia. Likely due to chronic obstructive pulmonary disease or the right axis deviation but no definite ST-segment or T-wave changes to indicate any ischemia or injury pattern. ASSESSMENT: 1. Moderate dehydration secondary to heat exposure. 2. Syncopal episode secondary to environment exposure with excessive heat exacerbated by #1. 3. 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 4. Chronic tobacco abuse in the form of cigarettes, 2 packs daily for greater than 50 years. 5. Mild electrolyte imbalance with hypokalemia. PLAN: Mr. Bedolla is going to be placed in observation for continuation of fluid management and rehydration. He will be on DVT prophylaxis per protocol. We will start him on an 1800 calorie ADA diet. Will closely monitor his neurological assessment as well as vital signs. Will anticipate his length of stay to be one to two days but probably discharge him later tomorrow once he is rehydrated. I have encouraged him to stop smoking which he has no desire to do so. Will go ahead and start him on a nicotine patch. Will repeat labs in the morning to include a CBC and BNP. His potassium will be replaced with IV fluid and maintenance fluid. Until we can transition him back to outpatient management, we will continue to monitor and treat as needed. Once he is able to be discharged, he will need close followup with [facility] where he sees Jerri Bergeron. [id number]
[2018-11-28] MEDS ORDERED: ACETAMINOPHEN 325 MG TAB PO PRN (20:14)
[2018-11-28] MEDS ORDERED: ONDANSETRON INJ 4 MG/2 ML VIAL IV PRN (20:14)
[2018-11-28] MEDS ORDERED: SODIUM CHLORIDE 0.9% (FLUSH) 10 ML SYG IV PRN (20:14)
[2018-11-28] MEDS ORDERED: IV SET AND CAP CHANGE INJ INJ SCH (20:30)
[2018-11-28] MEDS: NICOTINE PATCH 21 MG TD SCH (21:09)
[2018-11-29] MEDS: KCL 20MEQ/D5 1/2NS 1,000 ML IVS PRN ×2 (00:09→06:30)
[2018-11-29 10:24] VITALS: BP 111/74; TEMP 98.2; O2SAT 96
[2018-11-29] MEDS: NICOTINE PATCH 21 MG TD SCH (10:24)
--- NOTE | 2018-11-29 15:07 | DS ---
SUPERVISING PHYSICIAN: Bryson Gregory M.D. DISCHARGE DIAGNOSIS: 1. Moderate dehydration secondary to heat exposure. 2. Syncopal episode secondary to environment exposure with excessive heat exacerbated by #1. 3. 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 4. Chronic tobacco abuse in the form of cigarettes, 2 packs daily for greater than 50 years. 5. Mild electrolyte imbalance with hypokalemia that has resolved. HISTORY OF PRESENT ILLNESS: This is a 73 year-old male patient who presented to the Emergency Room after he had a syncopal episode. He had been sitting on his porch for the better part of the afternoon with the temperature being well over 102. He decided to get up and walk to the tobacco store which is approximately 100 yards from his house. He entered the building and at some point had a syncopal episode. He has had some episodes in the past of passing out when he stands up but notes this episode was probably less than a minute and he was assisted by the store silver plater. He does have a significant history of chronic obstructive pulmonary disease and he smokes well over 2 packs daily, and has for over 50 years. He does not have home oxygen. In the Emergency Room, he was noted to be dehydrated but not hypoxic. He was still diaphoretic and as well as warm to the touch. He was not hyperthermic with his initial body temperature of 98.3. His laboratory studies showed that he had a white count of 7,600, hemoglobin of 12.9, hematocrit 38.0, platelet count 141,000. Differential was without a left shift. His chemistries showed mild hypokalemia with potassium of 3.5. BUN was elevated at 20 with creatinine 1.02 and glucose of 112, lactic acid 1.5. Liver functions were within normal limits. Magnesium and calcium were normal. He had a troponin of less than 0.02. Urinalysis had 15 of ketones, small amount of bilirubin, otherwise unremarkable. His chest x- ray showed bilateral pulmonary emphysematous changes with flattening of the diaphragm and biapical pleural thickening and scarring, otherwise his lungs were clear without any focal consolidations or pneumothorax or pleural effusions. Heart size was noted to be normal. He was given fluids in the Emergency Room and was showing to be stable. He was placed in observation in the hospital for continuation of fluid therapy and close monitoring. HOSPITAL COURSE: He received fluids overnight and he was placed on DVT prophylaxis. He was given a diet and tolerated it without problems. He had neuro checks with his vital signs and they were all unremarkable. He was given smoking cessation information. His labs were repeated this morning. He also walked up and down the hallways without any complaints of dizziness, syncope or weakness. He will be discharged home in stable condition. LABORATORY: Followup hemoglobin and hematocrit this morning were 11.5 and 33.7. Potassium normalized to 4.2. Calcium was slightly low at 8. The remainder of his labs and films are per the History of Present Illness. DISCHARGE PLAN: The patient will be discharged home in stable condition. He is to resume his previous diet and increase his activity as tolerated. He is to followup with Jerri Mora, his PCP within 1 to 2 weeks. His home medications are to be resumed. He is encouraged to stay out of the heat and keep cool as well as to stay well hydrated. He is to return to the hospital or followup with Jerri Mora for any problems or complications. DISCHARGE MEDICATIONS: None. #[id number] [facility]
[2018-11-29] MEDS ORDERED: ENOXAPARIN SODIUM 40 MG/0.4 ML SYG SUBCU SCH (21:00)
== END 2018-11-29 10:40 | disposition home or self-care (01) ==
LOC: ER 16:40 → MS 19:30
PROVIDERS: ADMIT Nurse Practitioner Family; ATTEND Nurse Practitioner Acute Care
DX: E86.0 Dehydration (principal); T67.1XXA Heat syncope, initial encounter; E87.6 Hypokalemia; E87.8 Other disorders of electrolyte and fluid balance, not elsewhere classified; J44.9 Chronic obstructive pulmonary disease, unspecified; F17.210 Nicotine dependence, cigarettes, uncomplicated; X30.XXXA Exposure to excessive natural heat, initial encounter; Y93.01 Activity, walking, marching and hiking; Y92.512 Supermarket, store or market as the place of occurrence of the external cause; Z82.49 Family history of ischemic heart disease and other diseases of the circulatory system
CPT/HCPCS: 96366 ×2; 96365; J7620; 80048; 82553; 80053; 85014; 85018; 36415 ×2; 81001; 85025; 82550 ×2; 83735; 84443; 84484; 83880; 83605; 71045; 94760 ×2; 94640; 99285; 93005; G0378

== ENCOUNTER 2019-09-18 11:40 | Inpatient (IN) | payer MEDICARE, MEDICAID ==
[2019-09-18] MEDS ORDERED: SODIUM CHLORIDE 0.9% 1000ML 1,000 ML IVS ONE (11:54)
[2019-09-18] MEDS ORDERED: levoFLOXacin 500MG IV 500 MG in PREMIX BAG 1 BAG IVPB ONE (11:54)
[2019-09-18] MEDS ORDERED: SODIUM CHLORIDE 0.9% (FLUSH) 10 ML SYG IV PRN (11:54)
[2019-09-18] MEDS ORDERED: levoFLOXacin 500MG IV 100 ML IVPB ONE (12:16)
--- NOTE | 2019-09-18 12:47 | RAD ---
EXAM DESCRIPTION: Chest,1 View CLINICAL HISTORY: Shortness of breath, hypoxia, history of lung mass COMPARISON: Chest CT and chest radiograph dated June 25, 2019 TECHNIQUE: One view radiograph of the chest FINDINGS: Cardiac silhouette shows normal heart size. Pulmonary vascularity is within normal limits. Prominence of the superior aspect of the right hilar region, compatible with right paratracheal lymph node on comparison CT chest. Redemonstrated mass in the right upper lobe. Worsening opacity in the right upper lobe around the mass, which may represent postobstructive atelectasis versus pneumonia. Left lung shows no confluent infiltrates. No significant pleural effusion. No pneumothorax. No acute osseous abnormality. IMPRESSION: 1. Prominence of the superior aspect of the right hilar region, compatible with right paratracheal lymph node on comparison CT chest. 2. Redemonstrated mass in the right upper lobe. 3. Worsening hazy opacity in the right upper lobe around the mass, which may represent postobstructive atelectasis versus pneumonia. Electronically signed by: Jose Alejandro Simons MD 09/18/2019 12:45 PM CDT
--- NOTE | 2019-09-18 13:21 | ED.PDOC ---
History of Present Illness - General Chief Complaint: General Stated Complaint: "havent eaten in 3 days" Time Seen by Provider: 09/18/19 11:47 - History of Present Illness Initial Comments: This is a 74-year-old male presenting [facility] for vomiting, decreased p.o. intake, reported shortness of breath and cough over the past 3 to 4 days. He denies any fever. He states he has a sore throat and states that this is preventing him from eating. No recent antibiotic use. Per [facility], he has a reported history of cancer, uncertain location. He states he has not seen an oncologist and is not on any chemotherapy at this time.He denies any chest pain, shortness of breath, diarrhea, earache, fever The patient appears fairly confused at this time, do not feel he is a reliable historian. Timing/Duration: 4-6 hours Allergies/Adverse Reactions: Allergies NO KNOWN ALLERGY Allergy (Verified 09/18/19 15:52) Home Medications: Ambulatory Orders Acetaminophen Arthritis [Tylenol Arthritis] 650 mg PO Q6H PRN 09/18/19 Docusate Sodium [Colace Cap] 100 mg PO DAILY PRN 09/18/19 Ipratropium/Albuterol [Duoneb] 3 ml NEB QID PRN 09/18/19 Polyethylene Glycol 3350 [Miralax] 17 gm PO DAILY PRN 09/18/19 Review of Systems - Review of Systems EENTM: States: throat pain, mouth pain Respiratory: States: cough, short of breath Unable to Obtain Due To: condition, dementia Past Medical History (General) - Patient Medical History Hx Seizures: No Hx Stroke: No Hx Dementia: No Hx Asthma: No Hx of COPD: Yes Hx Cardiac Disorders: Yes Hx Congestive Heart Failure: No Hx Pacemaker: No Hx Hypertension: No Hx Thyroid Disease: No Hx Diabetes: No Hx Gastroesophageal Reflux: No Hx Renal Disease: No Hx Cancer: No Hx of HIV: No Hx Hepatitis C: No Hx MRSA: No Surgical History: no surgical history - Vaccination History Hx Tetanus, Diphtheria Vaccination: Yes Hx Influenza Vaccination: No Hx Pneumococcal Vaccination: No - Social History Hx Tobacco Use: Yes Hx Alcohol Use: No Hx Substance Use: No Hx Substance Use Treatment: No Hx Depression: No Hx Physical Abuse: No Hx Emotional Abuse: No - Activities of Daily Living [facility] (if applicable[facility]:: [facility] (if applicable):: None - Female History Patient is a Female of Child Bearing Age (10 -59 yrs old): No - Triage Comment ED Triage Comment: pt voices he has been unable to hold anything down for around 3 days and cannot swallow. pt with audible rhonchi bilaterally throughout. pt voices he wears oxygen @ 2L/nc Family Medical History - Family History Father Family History: No Known Living Status: Hx Cardiac Disease: Yes - parents -[place] Mother Living Status: Hx Cardiac Disease: Yes Physical Exam - Physical Exam General Appearance: Alert, Emaciated, Frail, Ill Appearing, Unkempt Eye Exam: bilateral normal Ears, Nose, Throat: normal ENT inspection, normal pharynx Neck: non-tender, full range of motion Respiratory: no respiratory distress, no accessory muscle use, rhonchi - Diffuse, inspiratory and expiratory Cardiovascular/Chest: normal peripheral pulses, regular rate, rhythm, no edema, no gallop, no JVD Gastrointestinal/Abdominal: non tender, soft Back Exam: normal inspection, no CVA tenderness, no vertebral tenderness Extremity: normal range of motion, non-tender, normal inspection, no pedal edema Neurologic: no motor/sensory deficits, alert, normal mood/affect, other - Oriented to person and place, not time Skin Exam: normal color, warm/dry Progress - Progress Progress: 09/18/19 12:39 Old records reviewed. Patient was admitted in May 2019 as an observation for intractable hip pain. Patient had had a fall at his home. He was found in deplorable home conditions and was unable to care for himself. He was eventually sent to a [facility]. At that time he he had a new lung mass in the right lung that was concerning for neoplasm. Is unclear if he ever saw oncology following that ED visit and hospitalization. He has no family locally. 09/18/19 14:28 Discussed with Kaur Barlow nurse practitioner. Reviewed labs, x-ray/CT findings. Explained that I feel patient is most appropriate for hospice given the advanced nature of his suspected lung cancer. He does have an elevated troponin without ischemic changes on his EKG. he denies any chest pain. I do suspect this is likely troponinemia related to his sepsis from postobstructive pneumonia. DDX: Pneumonia, PE, CHF, ACS, sepsis MDM: This is a 74-year-old male with known right lung mass suspicious for neoplasm with suspected mets in the liver. Longstanding history of COPD. Living in a [facility], appears to be somehwhat. Chest x-ray showed a new postobstructive pneumonia, d-dimer was elevated as well as troponin. CTA of the chest showed no evidence of PE. At this time I do not feel he is NOT a Front Office Secretary candidate with elevated troponin, I also suspect the troponin is likely related to sepsis. I feel at this time the best option for him given the advanced nature of his lung cancer would be hospice. Will admit for postobstructive pneumonia treatment as well as hospice placement.. Do not feel he needs transfer for cardiology evaluation. Lokesh Fischer DO [facility] #[id number] - Results/Orders Results/Orders: EKG interpreted by me at 12:15 PM. Sinus tach, rate of 121, normal axis, normal intervals, no ST segment elevations or depressions EXAM DESCRIPTION: Chest,1 View CLINICAL HISTORY: Shortness of breath, hypoxia, history of lung mass COMPARISON: Chest CT and chest radiograph dated June 25, 2019 TECHNIQUE: One view radiograph of the chest FINDINGS: Cardiac silhouette shows normal heart size. Pulmonary vascularity is within normal limits. Prominence of the superior aspect of the right hilar region, compatible with right paratracheal lymph node on comparison CT chest. Redemonstrated mass in the right upper lobe. Worsening opacity in the right upper lobe around the mass, which may represent postobstructive atelectasis versus pneumonia. Left lung shows no confluent infiltrates. No significant pleural effusion. No pneumothorax. No acute osseous abnormality. IMPRESSION: 1. Prominence of the superior aspect of the right hilar region, compatible with right paratracheal lymph node on comparison CT chest. 2. Redemonstrated mass in the right upper lobe. 3. Worsening hazy opacity in the right upper lobe around the mass, which may represent postobstructive atelectasis versus pneumonia. Electronically signed by: Jose Alejandro Simons MD 09/18/2019 12:45 PM CDT - [id number] EXAM DESCRIPTION: CTA Chest CLINICAL HISTORY: 74 years Male, Lung mass, elevated troponin, elevated d-dimer COMPARISON: CT chest dated 06/25/2019. Radiograph of the chest performed on the same day. TECHNIQUE: Contiguous thin section axial images through the chest were obtained after the administration of intravenous contrast. MIPS, Sagittal and coronal reconstructions were reviewed. FINDINGS: Visualized thyroid gland appears normal. Previously identified mediastinal lymph node has significantly increased in size from 7 x 5.2 cm 17.6 x 6.9 cm on today's examination. There is mass effect on the adjacent carotid and subclavian arteries and right internal jugular vein with no evidence of invasion or occlusion. The entire superior extent of the mass is not visualized on this examination. 2.2 cm subcarinal lymph node is again noted. Trachea is midline and the central tracheobronchial tree is patent. Severe emphysema. Right upper lobe mass with surrounding airspace opacities appears unchanged compared to prior examination. Spiculated 1.2 cm right lower lobe pulmonary nodule with surrounding airspace opacities also appears unchanged. Interval development of small right pleural effusion. The heart is normal in size with small pericardial effusion. The visualized aorta is nonaneurysmal with moderate atherosclerosis. The superior vena cava is normal in size and caliber. Mild coronary artery atherosclerosis. No central or major vessel pulmonary embolus. Thickening of the distal esophagus could be secondary to reflux. Ill-defined 4 cm hypodensity is identified in hepatic segment 4B, concerning for metastasis. Remainder of the visualized upper abdomen appears normal. Changes of kyphoplasty of the mid thoracic vertebral bodies are again noted. Multilevel degenerative changes are present. IMPRESSION: 1. Stable right upper lobe mass with surrounding air-space opacities. Stable right lower lobe spiculated nodule with surrounding airspace opacities. 2. Interval increase in size of the superior mediastinal lymph node which now projects into the right neck and measures approximately 17.6 x 6.9 cm. There is mass effect on the adjacent carotid and subclavian arteries and right internal jugular vein with no evidence of invasion or occlusion. 3. No central or major vessel pulmonary embolus. 4. Ill-defined 4 cm hypodensity is identified in hepatic segment 4B, concerning for metastasis. This exam was performed according to our departmental dose-optimization program, which includes automated exposure control, adjustment of the mA and/or kV according to patient size and/or use of iterative reconstruction technique. Electronically signed by: Trisha Pearson MD 09/18/2019 1:59 PM CDT 09/18/19 11:54 Sodium Chloride 0.9% (Flush) [Saline Flush Syringe] 10 ml IV PRN PRN 09/18/19 11:55 Telemetry .ONCE EKG Stat Pulse Ox Stat URINALYSIS Stat 09/18/19 12:28 BLOOD CULTURE Stat 09/18/19 14:00 LACTIC ACID Q2H Laboratory Results - last 24 hr 09/18/19 09/18/19 09/18/19 12:02 12:02 12:02 WBC 12.8 H RBC 4.47 L Hgb 13.1 L Hct 40.5 L MCV 90.7 MCH 29.3 MCHC 32.3 L RDW 15.6 H Plt Count 327 MPV 8.1 Absolute Neuts (auto) 11.40 H Absolute Lymphs (auto) 0.70 L Absolute Monos (auto) 0.80 Absolute Eos (auto) 0.00 Absolute Basos (auto) 0.00 Neutrophils % 88.6 H Lymphocytes % 5.2 L Monocytes % 6.0 Eosinophils % 0.0 L Basophils % 0.2 PT 11.4 H INR 1.15 PTT (SP) 27.3 D-Dimer, Quantitative 2870 H* Sodium 140 Potassium 4.7 Chloride 99 L Carbon Dioxide 29 Anion Gap 16.7 BUN 28 H Creatinine 0.84 BUN/Creatinine Ratio 33.3 H Random Glucose 106 H Serum Osmolality 285.3 Lactic Acid Calcium 9.2 Total Bilirubin 0.7 AST 27 ALT 16 Alkaline Phosphatase 63 Creatine Kinase 24 L CK-MB (CK-2) 5.4 H* CK-MB (CK-2) % Not Reportable Troponin I 0.07 H* Serum Total Protein 8.5 H Albumin 2.8 L Globulin 5.7 H Albumin/Globulin Ratio 0.5 L 09/18/19 12:02 WBC RBC Hgb Hct MCV MCH MCHC RDW Plt Count MPV Absolute Neuts (auto) Absolute Lymphs (auto) Absolute Monos (auto) Absolute Eos (auto) Absolute Basos (auto) Neutrophils % Lymphocytes % Monocytes % Eosinophils % Basophils % PT INR PTT (SP) D-Dimer, Quantitative Sodium Potassium Chloride Carbon Dioxide Anion Gap BUN Creatinine BUN/Creatinine Ratio Random Glucose Serum Osmolality Lactic Acid 2.0 Calcium Total Bilirubin AST ALT Alkaline Phosphatase Creatine Kinase CK-MB (CK-2) CK-MB (CK-2) % Troponin I Serum Total Protein Albumin Globulin Albumin/Globulin Ratio Departure - Departure Clinical Impression: Postobstructive pneumonia, Mass of right lung, Elevated troponin, Acute and chronic respiratory failure with hypoxia, COPD (chronic obstructive pulmonary disease) Time of Disposition: 14:34 Disposition: Admit Patient Condition: Fair Home Medications: Ambulatory Orders Acetaminophen Arthritis [Tylenol Arthritis] 650 mg PO Q6H PRN 09/18/19 Docusate Sodium [Colace Cap] 100 mg PO DAILY PRN 09/18/19 Ipratropium/Albuterol [Duoneb] 3 ml NEB QID PRN 09/18/19 Polyethylene Glycol 3350 [Miralax] 17 gm PO DAILY PRN 09/18/19
--- NOTE | 2019-09-18 14:00 | CT ---
EXAM DESCRIPTION: CTA Chest CLINICAL HISTORY: 74 years Male, Lung mass, elevated troponin, elevated d-dimer COMPARISON: CT chest dated 06/25/2019. Radiograph of the chest performed on the same day. TECHNIQUE: Contiguous thin section axial images through the chest were obtained after the administration of intravenous contrast. MIPS, Sagittal and coronal reconstructions were reviewed. FINDINGS: Visualized thyroid gland appears normal. Previously identified mediastinal lymph node has significantly increased in size from 7 x 5.2 cm 17.6 x 6.9 cm on today's examination. There is mass effect on the adjacent carotid and subclavian arteries and right internal jugular vein with no evidence of invasion or occlusion. The entire superior extent of the mass is not visualized on this examination. 2.2 cm subcarinal lymph node is again noted. Trachea is midline and the central tracheobronchial tree is patent. Severe emphysema. Right upper lobe mass with surrounding airspace opacities appears unchanged compared to prior examination. Spiculated 1.2 cm right lower lobe pulmonary nodule with surrounding airspace opacities also appears unchanged. Interval development of small right pleural effusion. The heart is normal in size with small pericardial effusion. The visualized aorta is nonaneurysmal with moderate atherosclerosis. The superior vena cava is normal in size and caliber. Mild coronary artery atherosclerosis. No central or major vessel pulmonary embolus. Thickening of the distal esophagus could be secondary to reflux. Ill-defined 4 cm hypodensity is identified in hepatic segment 4B, concerning for metastasis. Remainder of the visualized upper abdomen appears normal. Changes of kyphoplasty of the mid thoracic vertebral bodies are again noted. Multilevel degenerative changes are present. IMPRESSION: 1. Stable right upper lobe mass with surrounding air-space opacities. Stable right lower lobe spiculated nodule with surrounding airspace opacities. 2. Interval increase in size of the superior mediastinal lymph node which now projects into the right neck and measures approximately 17.6 x 6.9 cm. There is mass effect on the adjacent carotid and subclavian arteries and right internal jugular vein with no evidence of invasion or occlusion. 3. No central or major vessel pulmonary embolus. 4. Ill-defined 4 cm hypodensity is identified in hepatic segment 4B, concerning for metastasis. This exam was performed according to our departmental dose-optimization program, which includes automated exposure control, adjustment of the mA and/or kV according to patient size and/or use of iterative reconstruction technique. Electronically signed by: Trisha Pearson MD 09/18/2019 1:59 PM CDT
--- NOTE | 2019-09-18 14:55 | HP ---
SUPERVISING PHYSICIAN: Denzel Delarosa MD CHIEF COMPLAINT: Weakness and anorexia for 3 or 4 days HISTORY OF PRESENT ILLNESS: This is a 74 year-old male who [facility] due to vomiting and decreased oral intake. He also had some shortness of breath and coughing for the past 3 or 4 days with no complaint of fever. He has also had a sore throat and he felt that was preventing him from eating. He has had no recent antibiotic use. It was reported from the [facility] that he has a history of cancer but unknown etiology. Per his orders, it shows he had a mass in his right upper lobe. He has not had a workup on that. His initial vital signs showed a temperature of 98.7, heart rate of 94, blood pressure 155/97, respiratory rate 18, oxygen saturation 96%. Lab studies were done and his WBCs were 12,800 with a hemoglobin of 13.1, hematocrit of 40.5. He did have a left shift on his differential. He had a D-dimer of 2,870. Electrolytes were basically unremarkable. He did have a CKMB of 5.4 and a troponin of 0.7. BNP was 83.2. Lactic acid of 2. Urinalysis showed 100 of urine protein, trace intact urine blood and a small amount of urine bilirubin. Blood culture were drawn. CHEST X-RAY: 1. Prominence of the superior aspect of the right hilar region compatible with right paratracheal lymph node on comparison with CT of the chest. 2. Re-demonstrated mass in the right upper lobe. 3, Worsening hazy opacity in the right upper lobe around the mass which may represent obstructive atelectasis versus pneumonia. CHEST CTA: 1. Stable right upper lobe mass with surrounding airspace opacities, several right lower lobe spiculated nodule with surrounding airspace opacities. 2. Interval increase in size of superior mediastinal lymph node which now projects into the right neck and measures approximately 17.6 x 6.9 cm. There is a mass effect on the adjacent carotid and subclavian arteries and right internal jugular vein with no evidence of invasion or occlusion. 3. No central or major vessel pulmonary emboli. 4. Ill-defined 4 cm hypodensity is identified in hepatic segment for 4B concerning for metastases. He was given some fluids in the Emergency Room as well as started on some Levaquin and patient was admitted to the Floor in stable condition. Shortly after he came to the Floor, it was discussed with him the poor prognosis and he did sign a DNR and about 15 minutes after this heart rate elevated to the 140s, his oxygen saturation dropped into the mid to lower 80s, he was more unresponsive. He was given some Lopressor, his fluids were stopped and he was given 40 mg of Lasix His oxygen was adjusted to facilitate better pulmonary function and he was stabilized, although continued to be mostly unresponsive. PAST MEDICAL HISTORY: 1. Chronic obstructive pulmonary disease. 2. Chronic tobacco abuse. PAST SURGICAL HISTORY: 1. Back surgery. CURRENT MEDICATIONS: Per the EMR and awaiting verification. ALLERGIES: No known drug allergies. FAMILY HISTORY: Unknown. SOCIAL HISTORY: He smokes 1 to 2 packs of cigarettes daily for more than 50 years. He denies any alcohol or illicit drug use. He lives at [facility]. REVIEW OF SYSTEMS: Unable to obtain due to patient's mental status. PHYSICAL EXAMINATION: VITAL SIGNS: Temperature 97.8, heart rate 111, blood pressure 145/90, respirations 20 to 22, oxygen saturation around 94% on 4 liters nasal cannula. It did drop into the low 80s and he was placed on a nonrebreather. GENERAL: This is a 74 year-old male patient lying in bed. He is in moderate respiratory distress. He is mouth breathing. HEENT: Normocephalic and atraumatic. Pupils are equal and reactive. Oropharynx is clear. Oral mucous membranes are dry. NECK: Supple without mass. RESPIRATORY: Distant breath sounds throughout, much more diminished on the right. CHEST: There is equal rise and fall of the chest with inspiration and expiration. He is somewhat tachypneic. CARDIOVASCULAR: Regular rate and rhythm and he is tachycardic at times. ABDOMEN: EXTREMITIES: No cyanosis, clubbing, or edema. NEUROLOGIC: He is mostly obtunded and does not respond to noxious stimuli. SKIN: Warm and dry. Laboratory and films are as per the history of present illness. ASSESSMENT: 1. Acute respiratory failure. 2. High risk for COVID-19. 3. Metastatic lung disease with evidence of metastases to the liver and lymph node. 4. Sepsis secondary to healthcare acquired versus aspiration pneumonia. Heart rate was between 116 and 120, respiratory rate in the mid to upper 20s, oxygen saturation in the low 80s. WBC on admission was 12,800 and has gone up to 20,700. 5. Elevated troponin without history of chest pain or any EKG changes. 6. Congestive heart failure, diastolic etiology. Last echocardiogram in 2016. 7. Diabetes mellitus type 2. 8. History of tobacco abuse. PLAN: The patient has been admitted to the hospital, pneumonia guidelines were initiated. I also started him on sliding scale insulin per protocol. He will continue on the Levaquin and aggressive pulmonary hygiene. I will also give him some judicious fluids overnight. He is a DNR at this time and does not have any family to speak of. He will have DVT prophylaxis with Lovenox and ulcer prophylaxis with a PPI. We will consider adding clindamycin as he may be at high risk for aspiration. I will repeat his labs in the morning. We will continue to monitor him closely and follow as needed. #[id number] FITZ
[2019-09-18] MEDS ORDERED: FUROSEMIDE INJ 40 MG/4 ML VIAL ONE (17:21)
[2019-09-18] MEDS ORDERED: FUROSEMIDE INJ 40 MG/4 ML VIAL IV ONE (17:33)
[2019-09-18] MEDS ORDERED: ALBUTEROL SULFATE 2.5 MG/3 ML VIAL NEB ONE (17:36)
[2019-09-18] MEDS ORDERED: ALBUTEROL SULFATE 2.5 MG/3 ML VIAL NEB PRN (17:44)
[2019-09-18] MEDS ORDERED: METOPROLOL TARTRATE INJ 5 MG/5 ML VIAL IV ONE (17:44)
[2019-09-18] MEDS ORDERED: IV SET AND CAP CHANGE INJ INJ SCH (18:00)
[2019-09-18] MEDS ORDERED: IPRATROPIUM/ALBUTEROL 3 ML VIAL INH SCH (20:00)
[2019-09-18] MEDS ORDERED: SODIUM CHLORIDE 0.9% 250ML 250 ML IVS ONE (21:52)
[2019-09-18] MEDS ORDERED: DEX 5% W/NACL 0.45% 1000ML 1,000 ML IVS ONE (22:00)
[2019-09-19] MEDS: IPRATROPIUM/ALBUTEROL 3 ML VIAL NEB SCH ×3 (08:00→16:00)
--- NOTE | 2019-09-19 10:33 | RAD ---
: 1945. Technique: Portable AP chest x-ray. Comparison: Chest x-ray September 18, 2019. Chest CT September 18, 2019. Clinical history: Pneumonia. Heart size: Heart size is normal. Lungs: Right-sided volume loss is seen with elevated right diaphragm. This appears more pronounced than on the previous chest x-ray. 5.5 cm medial right upper lobe mass consistent with malignant neoplasm. Surrounding interstitial opacities better seen at CT indicative of potential lymphangitic carcinomatosis. The left lung is well-expanded. There is increased interstitial density in the left related to fibrosis and emphysema Pleura: There is a right partially subpulmonic pleural effusion. No pneumothorax. Mediastinum and karsten: Large right hilar and mediastinal mass better depicted at CT estimated to be 8 cm with paratracheal thickening extending into the apex. Skeletal: Multilevel vertebroplasty. Support tubings: None. Impression: 1. Right upper lobe 5.5 cm mass/malignant neoplasm and extensive mediastinal/hilar adenopathy. 2. Right-sided volume loss with subpulmonic effusion. 3. COPD. Electronically signed by: Fernando Mix MD 09/19/2019 10:31 AM CDT
[2019-09-19] MEDS ORDERED: CLINDAMYCIN IV 900MG 50 ML IVPB ONE ×2 (14:12→20:24)
[2019-09-19] MEDS: CLINDAMYCIN IV 900MG 900 MG in PREMIX BAG 1 BAG IVPB SCH ×2 (14:13→20:30)
[2019-09-19] MEDS: SODIUM CHLORIDE 0.9% (FLUSH) 10 ML SYG IV SCH (20:29)
[2019-09-19] MEDS: SODIUM CHLORIDE 0.9% (FLUSH) 10 ML SYG IV PRN ×2 (21:24→22:32)
[2019-09-19] MEDS: MORPHINE SULFATE INJ 10 MG/ML VIAL IV PRN (22:30)
[2019-09-20] MEDS: MORPHINE SULFATE INJ 10 MG/ML VIAL IV PRN ×4 (02:33→17:36)
[2019-09-20] MEDS: SODIUM CHLORIDE 0.9% (FLUSH) 10 ML SYG IV PRN ×3 (02:35→04:38)
[2019-09-20] MEDS ORDERED: METOPROLOL TARTRATE INJ 5 MG/5 ML VIAL IV ONE ×3 (03:05→18:09)
[2019-09-20] MEDS ORDERED: CLINDAMYCIN IV 900MG 50 ML IVPB ONE ×2 (04:34→11:58)
[2019-09-20] MEDS: CLINDAMYCIN IV 900MG 900 MG in PREMIX BAG 1 BAG IVPB SCH ×2 (04:38→13:03)
[2019-09-20] MEDS: IPRATROPIUM/ALBUTEROL 3 ML VIAL NEB SCH ×4 (09:00→20:00)
[2019-09-20] MEDS: SODIUM CHLORIDE 0.9% (FLUSH) 10 ML SYG IV SCH (13:03)
--- NOTE | 2019-09-20 13:51 | PN ---
SUPERVISING PHYSICIAN: Denzel Delarosa MD DATE: 09/19/19 SUBJECTIVE: The patient is lying in bed, he is more awake today. He is still quite lethargic and only answers simple yes/no questions. He complained of shortness of breath at rest. I discussed hospice with him and he said he would be interested in it and realized he most likely would not go home due to the severity of his illness and his poor prognosis. OBJECTIVE: VITAL SIGNS: Temperature 98.1, heart rate 109, blood pressure 114/85, respiratory rate 20 to 24, oxygen saturation 95% on a venturi mask. RESPIRATORY: Distant breath sounds throughout with very limited breath sounds to the right side, faint respirations in the right lower lung. He is tachypneic. His words are very faint in one-word replies. NEUROLOGIC: He is lethargic. LABORATORY: WBC 20,700 with a hemoglobin of 13, hematocrit 40.3. Electrolytes are basically within normal limits. His preliminary blood cultures showed no growth after 24 hours. CHEST X-RAY: 1. Right upper lobe 5.5 cm mass/malignant neoplasm and extensive mediastinal hilar adenopathy. 2. Right-sided volume loss with subpulmonic effusion. 3. Chronic obstructive pulmonary disease. All other labs and films have been reviewed via the EMR. ASSESSMENT: 1. Acute respiratory failure. 2. High risk for COVID-19. 3. Metastatic lung disease with evidence of metastases to the liver and lymph node. 4. Sepsis secondary to healthcare acquired versus aspiration pneumonia. Heart rate was between 116 and 120, respiratory rate in the mid to upper 20s, oxygen saturation in the low 80s. WBC on admission was 12,800 and has gone up to 20,700. 5. Elevated troponin without history of chest pain or any EKG changes. 6. Congestive heart failure, diastolic etiology. Last echocardiogram in 2016. 7. Diabetes mellitus type 2. 8. History of tobacco abuse. PLAN: We will continue present supportive care. Will hold on any lab or films for tomorrow. He is a DNR. We will keep the patient comfortable. I am not aware of any Power of [employer] Teacher but administration and hospice needs to be consulted on Saturday to see if his mental status will allow him to be in hospice care. We will continue to monitor him closely and follow as needed. #[id number] [facility]
--- NOTE | 2019-09-20 14:56 | PN ---
SUPERVISING PHYSICIAN: Denzel Delarosa MD DATE: 09/20/19 SUBJECTIVE: The patient is lying in bed, he is obtunded and shows very little response. He does grimace to noxious stimuli. It is reported from nursing that his heart rate does go up at times and his oxygen has dropped to around 90% on a nonrebreather. He is then given morphine and that stabilizes his heart rate. Otherwise, he has been mostly unresponsive since last night. OBJECTIVE: VITAL SIGNS: Temperature 99, heart rate 119, blood pressure 114/78, respiratory rate is 23. Oxygen saturation 92% on a [id number]. . RESPIRATORY: Almost absent breath sounds on hs right side, otherwise, very diminished throughout. CARDIAC: Tachycardic rate, regular rhythm. GI: Abdomen soft, nondistended. Bowel sounds are positive. NEUROLOGIC: He is unresponsive other than to grimacing to noxious stimuli. LABORATORY/RADIOLOGY: There are no labs or films to report at this time. ASSESSMENT: 1. Acute respiratory failure. 2. High risk for COVID-19. 3. Metastatic lung disease with evidence of metastases to the liver and lymph node. 4. Sepsis secondary to healthcare acquired versus aspiration pneumonia. Heart rate was between 116 and 120, respiratory rate in the mid to upper 20s, oxygen saturation in the low 80s. WBC on admission was 12,800 and has gone up to 20,700. 5. Elevated troponin without history of chest pain or any EKG changes. 6. Congestive heart failure, diastolic etiology. Last echocardiogram in 2016. 7. Diabetes mellitus type 2. 8. History of tobacco abuse. PLAN: We will continue present supportive care. Continue getting his morphine for pain relief. Yesterday, he did say he wanted hospice and I will talk to [facility] tomorrow to see if he could be placed on hospice care as an inpatient. I also attempted to call his friend, Sima Rivera, telephone number [phone]. I believe she is his sister but I have been unable to contact her. Otherwise, we will hold on any films but I will repeat lab in the morning and hopefully he can be discharged out of the acute care sitting and into hospice care tomorrow. We will continue to monitor him closely and follow as needed. #[id number] [facility]
[2019-09-20 16:09] VITALS: TEMP 98.8
[2019-09-20 18:45] VITALS: BP 106/68; O2SAT 86
--- NOTE | 2019-09-21 13:56 | DS ---
SUPERVISING PHYSICIAN: Denzel Delarosa MD DATE OF : 09/20/19 DISCHARGE DIAGNOSIS: . HISTORY OF PRESENT ILLNESS: This is a 74 year-old male who came to the Emergency Room on the date of admission due to vomiting and decreased oral intake. He had shortness of breath and coughing for 3 or 4 days with no complaint of fever. He has also had a sore throat and he felt that was preventing him from eating. He lives in a local [facility] and has a history of cancer, but was of unknown etiology or treatment. According to previous records, he had a mass in his right upper lobe. He has not had a workup on that that is on his chart. His initial vital signs were stable. WBCs were 12,800 with a hemoglobin of 13.1, hematocrit of 40.5. He had a D-dimer of 2,870. Electrolytes were basically unremarkable. Chest CTA showed a stable right upper lobe mass with surrounding airspace opacities, several right lower lobe spiculated nodules with surrounding airspace opacities and interval increase in size of superior mediastinal lymph node which now projects into the right neck, measuring approximately 17.6 x 6.9 cm. No central or major vessel pulmonary emboli. Ill-defined 4 cm hypodensity identified in the hepatic segment concerning for a metastasis. He was given some fluids in the Emergency Room and given some Levaquin. He was then admitted to the Floor in stable condition. Shortly after he came to the Floor, we discussed his poor prognosis and he did sign a DNR. Approximately 15 minutes after that, he had an elevated heart rate into the 140s to 150s. His O2 saturations dropped to the low 80s. He was much more unresponsive. He was given some Lopressor for his rapid heart rate, which improved down to the 90s. He was also given some Lasix. HOSPITAL COURSE: The patient was somewhat better the following day and was able to respond to simple yes/no questions as well as saying one to two-word phrases. His WBCs did go up to over 20,000. He was treated with fluids and also tested for COVID-19. He was treated aggressively for sepsis. He actually said he wanted to be put on hospice, but then his condition deteriorated rapidly over the next 24 to 36 hours and he at 18:55 on 09/20/19. His body and all his personal belongings that were at the hospital were sent to [facility]. DISCHARGE MEDICATIONS: None. #[id number] [facility]
== END 2019-09-20 20:05 | disposition expired | DRG 871 ==
LOC: ER 11:40 → OBSVTOIN 14:55 → MS 14:55
PROVIDERS: ADMIT Nurse Practitioner Acute Care; ATTEND Nurse Practitioner Acute Care
PROC: B32T1ZZ Computerized Tomography (CT Scan) of Left Pulmonary Artery using Low Osmolar Contrast (ICD-10-PCS; principal; 2019-09-18)
PROC: B32S1ZZ Computerized Tomography (CT Scan) of Right Pulmonary Artery using Low Osmolar Contrast (ICD-10-PCS; 2019-09-18)
DX: A41.9 Sepsis, unspecified organism (principal); J96.21 Acute and chronic respiratory failure with hypoxia; C34.11 Malignant neoplasm of upper lobe, right bronchus or lung; C78.7 Secondary malignant neoplasm of liver and intrahepatic bile duct; C77.9 Secondary and unspecified malignant neoplasm of lymph node, unspecified; J18.9 Pneumonia, unspecified organism; J69.0 Pneumonitis due to inhalation of food and vomit; I50.30 Unspecified diastolic (congestive) heart failure; J44.0 Chronic obstructive pulmonary disease with (acute) lower respiratory infection; Z66 Do not resuscitate; F17.210 Nicotine dependence, cigarettes, uncomplicated; Y95 Nosocomial condition; E11.9 Type 2 diabetes mellitus without complications; Z79.899 Other long term (current) drug therapy